=== PATIENT | female | born 1960 | race Caucasian/White ===

== ENCOUNTER 2016-10-31 18:17 | Observation (INO) | payer BC ==
[~2016-10-31] VITALS: Ht 167.6 cm; Wt 105.1 kg
[~2016-10-31 18:17] MED LIST: ACID REFLUX PO; ADVIN10/60 INH; ALBU1AER9 INH; B-CO-25 PO; BACL1TAB PO; CHOL1000 PO; CLOP1TAB15 PO; COEN1CAP17 PO; CYM60 PO; FEXO1TAB46 PO; FRS/40 PO; GABA-113 PO; LOSA1TAB PO; LUTE10TA PO; MULTTAB PO; ROSU40TA PO; SALI0.6517; TPRSR50 PO; TRAZ100T29 PO
--- NOTE | 2016-10-31 18:42 | EMERGENCY ROOM VISIT NOTE ---
History Report prepared by Lanette: Breana Underwood Under the Supervision of: Dr. Deo Gardiner M.D. First contact with patient: 18:26 Chief Complaint: NEURO SYMPTOMS Stated Complaint: NUMBNESS ON LEFT SIDE, HEADACHE History of Present Illness The patient is a 56 year old female who presents to the Emergency Room with complaints of persistent numbness on the left side starting 1500 today. She has chest pressure, tingling on her face, and left arm pain. The chest pressure is on the left side. She reports pain in her side for the past 3 months. She denies any vomiting, weakness, or fever. She denies any recent injury. She has had a stroke before and says that the symptoms are similar. Prior to having her stroke she had received Botox injections in her forehead for migraines. She had a second session of Botox 1 month ago. She has a history of chronic ischemic heart disease. She has had a heart attack in the past. She does not have any stents in place. She did not take any aspirin today. She is on Plavix. Source of History: patient Onset: 1500 today Position: other (left side) Quality: numbness Timing: other (persistent) Associated Symptoms: No fevers, No vomiting, No weakness Note: Pt reports chest pressure, face tingling, left arm pain. Review of Systems See HPI for pertinent positives & negatives. A total of 10 systems reviewed and were otherwise negative. Past Medical & Surgical Medical Problems: (1) Asthma, moderate persistent (2) Brice esophagus (3) CVA (cerebral vascular accident) (4) Fibromyalgia (5) Gastroparesis (6) GERD (gastroesophageal reflux disease) (7) HTN (hypertension) (8) IPMN (intraductal papillary mucinous neoplasm) (9) Migraine (10) ANGELICA (obstructive sleep apnea) Surgical Problems: (1) H/O tubal ligation (2) Hx of cervical discectomy (3) S/P cholecystectomy Family History Cancer Diabetes mellitus FH: gallbladder disease FH: heart disease Hypertension Kidney disease Kidney stones Social History Smoking Status: Former Smoker Alcohol Use: none Marital Status: Housing Status: lives with significant other Occupation Status: employed Current/Historical Medications Scheduled B-Complex W/ Folic Acid (Super B Complex Maxi), 1 TAB PO QAM Cholecalciferol (D 5000), 5,000 UNITS PO QAM Clopidogrel (Plavix), 75 MG PO QAM Coenzyme Q10 (Ubidecarenone) (Co Q 10), 100 MG PO QAM Duloxetine HCl (Duloxetine HCl), 60 MG PO QAM Duloxetine HCl (Cymbalta), 30 MG PO QAM Fluticasone Prop/Salmeterol (Advair Diskus 250/50 60 Dose), 1 PUFF INH BID Fluticasone Propionate (Nasal) (Flonase Allergy Relief), 1 SPRAY CRISTIANO BID Gabapentin (Neurontin), 300 MG PO TID Loratadine (Claritin), 10 MG PO QAM Losartan Potassium (Cozaar), 25 MG PO QPM Lutein (Lutein), 10 MG PO QAM Metoclopramide (Reglan), 10 MG PO BIDM Metoprolol Tartrate (Lopressor) (Lopressor), 50 MG PO BID Multiple Vitamins W/ Minerals (One Daily 50 Plus), 1 TAB PO QAM Pantoprazole (Protonix), 40 MG PO BID Rosuvastatin Calcium (Crestor), 40 MG PO QPM Triamcinolone Acet (Triamcinolone Acetonide), 1 APPLN TOP BID Scheduled PRN Albuterol Sulf (Albuterol Sulfate), 1 DOSE INH Q4H PRN for Shortness of Breath Albuterol Sulfate (Proventil Hfa), 2 PUFFS INH Q4H PRN for Shortness of Breath Baclofen (Lioresal), 10 MG PO TID PRN for Muscle Spasms Saline ([place] Nasal [place]), 1 SPRAY CRISTIANO Q2H PRN for DRYNESS Trazodone Hcl (Trazodone), 100 MG PO HS PRN for Insomnia Allergies Coded Allergies: Cephalexin (Verified Allergy, Intermediate, YEAST INFECTION, 10/31/16) Latex1 -Allergic Contact Dermititis (Verified Allergy, Intermediate, RASH- ITCHINESS, 10/31/16) Allergy with high doses Lisinopril (Verified Allergy, Intermediate, COUGH, 10/31/16) Amitriptyline (Verified Adverse Reaction, Mild, "Made me tired", 10/31/16) Prednisone (Verified Adverse Reaction, Unknown, ELEVATED BP-"FELT FUNNY", 10/31/16) Physical Exam Vital Signs Date Time Temp Pulse Resp B/P Pulse Ox O2 Delivery O2 Flow Rate FiO2 10/31/16 19:17 85 21 10/31/16 19:13 84 10/31/16 19:05 88 18 155/81 10/31/16 19:01 155/81 10/31/16 18:20 36.5 86 16 160/93 93 Physical Exam GENERAL: Patient is anxious appearing and in no acute distress. HEENT: No acute trauma, normocephalic atraumatic, mucous membranes moist, no nasal congestion, no scleral icterus. NECK: No stridor, no adenopathy, no meningismus, trachea is midline. LUNGS: No dyspnea. Clear to auscultation and equal bilaterally. No wheeze, no rhonchi. HEART: Regular rate and rhythm. No murmurs, rubs, gallops appreciated. ABDOMEN: Soft, nontender, bowel sounds positive, no masses appreciated, no peritonitis. BACK: No midline tenderness, no CVA tenderness EXTREMITIES: Normal motion all extremities, no cyanosis, no edema. NEUROLOGIC: Alert and oriented, no acute motor or sensory deficits, no focal weakness, cranial nerves grossly intact. SKIN: No rash, no jaundice, no diaphoresis. Medical Decision & Procedures ER Provider Diagnostic Interpretation: X ray results are stated below per my interpretation and the radiologist's interpretation. Radiology results and stated below per my review and radiologist interpretation: CHEST ONE VIEW PORTABLE CLINICAL HISTORY: Chest pain. COMPARISON STUDY: Chest radiograph December 29, 2014. FINDINGS: This exam is compromised by suboptimal penetration. There is an anterior cervical spine fusion. No pneumothorax or pleural effusion is present. Apparent hazy left basilar opacity is probably artifactual. Cardiomediastinal silhouette is normal. IMPRESSION: 1. No acute findings. 2. Study compromised by suboptimal penetration. Hazy left basilar opacity is likely artifactual. Electronically signed by: Chris Elliott M.D. 10/31/2016 7:05 PM Dictated Date/Time: 10/31/2016 7:[address] OF THE HEAD WITHOUT CONTRAST CLINICAL HISTORY: Left face/arm paresthesias COMPARISON STUDY: Head CT February 23, 2014 and MRI of the brain September 03, 2015. CT DOSE: 601.98 mGy.cm TECHNIQUE: Helical axial images of the head were obtained without IV contrast. Automated exposure control was utilized for the study. FINDINGS: No acute intracranial hemorrhage, midline shift or mass effect is present. Ventricular system is normal. Basilar cisterns are patent. There are no extra-axial collections. Shane-white differentiation is maintained. There are no findings to suggest acute dural sinus thrombosis or acute territorial infarct. There is no calvarial abnormality. Visualized portions of the sinuses and mastoid air cells are clear. IMPRESSION: No acute intracranial findings. Electronically signed by: Chris Elliott M.D. 10/31/2016 7:40 PM Dictated Date/Time: 10/31/2016 7:38 PM Laboratory Results Test 10/31/16 19:00 Immature Granulocyte % (Auto) 0.1 % White Blood Count 7.59 K/uL (4.8-10.8) Red Blood Count 4.83 M/uL (4.2-5.4) Hemoglobin 14.7 g/dL (12.0-16.0) Hematocrit 44.0 % (37-47) Mean Corpuscular Volume 91.1 fL (80-100) Mean Corpuscular Hemoglobin 30.4 pg (25-34) Mean Corpuscular Hemoglobin Concent 33.4 g/dl (32-36) Platelet Count 184 K/uL (130-400) Mean Platelet Volume 9.6 fL (7.4-10.4) Neutrophils (%) (Auto) 56.3 % Lymphocytes (%) (Auto) 31.4 % Monocytes (%) (Auto) 9.5 % Eosinophils (%) (Auto) 1.8 % Basophils (%) (Auto) 0.9 % Neutrophils # (Auto) 4.27 K/uL (1.4-6.5) Lymphocytes # (Auto) 2.38 K/uL (1.2-3.4) Monocytes # (Auto) 0.72 K/uL (0.11-0.59) Eosinophils # (Auto) 0.14 K/uL (0-0.5) Basophils # (Auto) 0.07 K/uL (0-0.2) Immature Granulocyte # (Auto) 0.01 K/uL (0.00-0.02) Prothrombin Time 10.1 SECONDS (9.0-12.0) Prothromb Time International Ratio 0.9 (0.9-1.1) Activated Partial Thromboplast Time 26.4 SECONDS (21.0-31.0) Partial Thromboplastin Ratio 1.0 Estimated Average Glucose 123 mg/dl Hemoglobin A1c 5.9 % (4.5-5.6) Phosphorus Level 3.0 mg/dl (2.5-4.9) Magnesium Level 2.4 mg/dl (1.8-2.4) Total Creatine Kinase 116 U/L (26-192) Hepatitis C Antibody Screen NEG (NEG) Laboratory results as reviewed by me. Medications Administered Medications (Trade) Dose Ordered Sig/Ankit Route Start Time Stop Time Status Last Admin Dose Admin Nitroglycerin (Nitrostat Tab) 0.4 mg Q5M PRN SL 10/31/16 18:45 10/31/16 22:34 DC 10/31/16 18:55 0.4 MG Aspirin (Aspirin Chew) 324 mg NOW STAT PO 10/31/16 20:03 10/31/16 20:04 DC 10/31/16 21:56 324 MG ECG Indication: chest pain Rate (beats per minute): 81 Rhythm: normal sinus Findings: no acute ischemic change, no ectopy ED Course 1826: The patient was evaluated in room B10. A complete history and physical exam was performed. 1844: Nitroglycerin 0.4 mg SL. 1954: I reevaluated the patient. She reports that the nitro resolved the chest pain and tingling. 2001: I discussed the patient's [facility] She will evaluate the patient for further management. 2002: Aspirin 324 mg PO. 2006: Upon reevaluation, the patient is resting comfortably. Discussed results and treatment plan with the patient. She verbalized understanding and agreement with the treatment plan. The patient will be evaluated for further management. Medical Decision Differential: Sepsis, Infectious (UTI/Pneumonia/Meningitis/etc), Metabolic/ Electrolyte Abnormality, Cardiac, Hepatic, Endocrine, Toxicologic, Neurologic, amongst other pathologies entertained. 56 yr old female arrives with complaint of both substernal chest pressure and left face/arm paresthesias. Given nitro with relief of symptoms. CT head negative. CXR, EKG, Trop OK. SHe is high risk stroke/TX given her history. Will need cardiac/stroke work-up. She was not TPA candidate given longevity symptoms, minimal symptoms, and not clear cause of symptoms. Stable throughout ED stay. Consults Time Called: 1955 Consulting Physician: [facility] Returned Call: 2001 Discussed the patient's case. The patient will be evaluated for further treatment and disposition. Impression Primary Impression: Substernal chest pain Additional Impression: Paresthesia of left arm Scribe Attestation The scribe's documentation has been prepared under my direction and personally reviewed by me in its entirety. I confirm that the note above accurately reflects all work, treatment, procedures, and medical decision making performed by me. Time Last Known Well possibly 1500 Stroke t-PA Criteria Reviewed Does NOT meet criteria for t-PA Reason t-PA Not Given Treatment not indicated Departure Information Dispostion Being Evaluated By Hospitalist Referrals Rocky So M.D. (PCP) Patient Instructions My [facility] Problem Qualifiers
[2016-10-31] MEDS ORDERED: NITROGLYCERIN 0.4 MG SL PER TAB CHARGE SL PRN ×2 (18:45→20:45)
--- NOTE | 2016-10-31 19:08 | DIAGNOSTIC IMAGING REPORT ---
CHEST ONE VIEW PORTABLE CLINICAL HISTORY: Chest pain. COMPARISON STUDY: Chest radiograph December 29, 2014. FINDINGS: This exam is compromised by suboptimal penetration. There is an anterior cervical spine fusion. No pneumothorax or pleural effusion is present. Apparent hazy left basilar opacity is probably artifactual. Cardiomediastinal silhouette is normal. IMPRESSION: 1. No acute findings. 2. Study compromised by suboptimal penetration. Hazy left basilar opacity is likely artifactual. Electronically signed by: Chris Elliott M.D. 10/31/2016 7:05 PM Dictated Date/Time: 10/31/2016 7:04 PM
[2016-10-31 19:13] LABS: BASO % 0.9 %; BASO ABS # 0.07 K/uL (0-0.2); COMPLETE YES; EOS % 1.8 %; IG% 0.1 %; LYMPH % 31.4 %; LYMPH ABS # 2.38 K/uL (1.2-3.4); MEAN CELL VOLUME 91.1 fL (80-100); MEAN CORPUSCULAR HEMOGLOBIN 30.4 pg (25-34); MEAN CORPUSCULAR HGB CONC 33.4 g/dl (32-36); MEAN PLATELET VOLUME 9.6 fL (7.4-10.4); MONO % 9.5 %; NEUT % 56.3 %; PLATELET COUNT 184 K/uL (130-400); RED BLOOD COUNT 4.83 M/uL (4.2-5.4); WHITE BLOOD COUNT 7.59 K/uL (4.8-10.8)
[2016-10-31 19:25] LABS: INR 0.9 (0.9-1.1); PROTHROMBIN TIME (PATIENT) 10.1 SECONDS (9.0-12.0)
[2016-10-31 19:29] LABS: BLOOD UREA NITROGEN 11 mg/dl (7-18); BUN/CREATININE RATIO 10.2 (10-20); CALCIUM 8.8 mg/dl (8.5-10.1); CARBON DIOXIDE 28 mmol/L (21-32); CHLORIDE 108 mmol/L (98-107); GLUCOSE 111 mg/dl (70-99); MAGNESIUM 2.4 mg/dl (1.8-2.4); POTASSIUM 3.8 mmol/L (3.5-5.1); SODIUM 142 mmol/L (136-145)
[2016-10-31] MEDS ORDERED: METO-157 PO (19:31)
[2016-10-31] MEDS ORDERED: ALBUAER INH (19:31)
[2016-10-31] MEDS ORDERED: ADVIN25/60 INH (19:31)
[2016-10-31] MEDS ORDERED: CHOLCAP10 PO (19:31)
[2016-10-31] MEDS ORDERED: FLUT0.15 NAE (19:31)
[2016-10-31] MEDS ORDERED: TRMCR515 TOP (19:31)
[2016-10-31] MEDS ORDERED: SALI0.6510 NAE (19:31)
[2016-10-31] MEDS ORDERED: SUCR1TAB29 PO (19:31)
[2016-10-31] MEDS ORDERED: CLR10 PO (19:31)
[2016-10-31] MEDS ORDERED: ALBINS INH (19:31)
[2016-10-31] MEDS ORDERED: METO50TA16 PO (19:31)
[2016-10-31] MEDS ORDERED: PANT1TAB48 PO (19:31)
[2016-10-31] MEDS ORDERED: MULT50TA3 PO (19:31)
[2016-10-31] MEDS ORDERED: CYM/30 PO (19:37)
--- NOTE | 2016-10-31 19:42 | DIAGNOSTIC IMAGING REPORT ---
CT OF THE HEAD WITHOUT CONTRAST CLINICAL HISTORY: Left face/arm paresthesias COMPARISON STUDY: Head CT February 23, 2014 and MRI of the brain September 03, 2015. CT DOSE: 601.98 mGy.cm TECHNIQUE: Helical axial images of the head were obtained without IV contrast. Automated exposure control was utilized for the study. FINDINGS: No acute intracranial hemorrhage, midline shift or mass effect is present. Ventricular system is normal. Basilar cisterns are patent. There are no extra-axial collections. Shane-white differentiation is maintained. There are no findings to suggest acute dural sinus thrombosis or acute territorial infarct. There is no calvarial abnormality. Visualized portions of the sinuses and mastoid air cells are clear. IMPRESSION: No acute intracranial findings. Electronically signed by: Chris Elliott M.D. 10/31/2016 7:40 PM Dictated Date/Time: 10/31/2016 7:38 PM
[2016-10-31] MEDS ORDERED: ASPIRIN 324 MG CHEW PO STA (20:03)
[2016-10-31] MEDS ORDERED: ACETAMINOPHEN 325 MG TAB PO PRN (20:45)
[2016-10-31] MEDS ORDERED: ONDANSETRON INJ 2 MG/ML 2 ML VIAL IV PRN (20:45)
[2016-10-31] MEDS ORDERED: PHARMACIST DISCHARGE MED REC CONSULT PRN (21:00)
--- NOTE | 2016-10-31 21:07 | Progress Note ---
Progress Note Date of Service Oct 31, 2016. Progress Note Patient was seen and evaluated with DRUG SAFETY DATA MANAGEMENT SPECIALIST, Umm Hull. Patient came in with chest pain with left arm heaviness while working at her desk. No nausea, vomiting, sweating, palpitations, diaphoresis associated with it On exam AAOX3, obese, Lungs- clear, Heart- s1, s2 normal, Abd- soft, non tender, non distended, Ext no edema A/P: Chest pain, atypical -Rule out ACS with cardiac risk factors -Has had 2 cath per patient few years ago- mild CAD per her not requiring any intervention -EKG- NSR, no acute changes, Trop x 1 negative -Troponin trend, Stress echo in AM Agree with A/P of Umm BANDA.
[2016-10-31 21:10] VITALS: O2SAT 93; Ht 167.6 cm; Wt 105.1 kg
[2016-10-31] MEDS ORDERED: IV FLUIDS COMPLETED PRN (21:15)
[2016-10-31 22:00] VITALS: PULSE 84; O2SAT 96
[2016-10-31] MEDS ORDERED: ASPIRIN 324 MG CHEW ONE (22:04)
[2016-10-31 22:11] VITALS: BP 166/79; PULSE 74; TEMP 36.4; O2SAT 93
--- NOTE | 2016-10-31 22:12 | History and Physical ---
History & Physical Date & Time of Service: Oct 31, 2016 ~ 20:30 Chief Complaint: Chest Pain Primary Care Physician: Rocky So M.D. History of Present Illness 56 year old female who presents to the ER with chest pain. Patient reports she was sitting at her desk when she developed mid sternal chest pain with associated left arm heaviness and numbness. Patient describes the pain as a pressure. She reports associated shortness of breath, nausea, diaphoresis, and lightheadedness. She also had numbness on the left side of her body which she reports is residual from her prior stroke and only appears when she is tried. Patient reports resolution of her symptoms with nitroglycerin. She denies abdominal pain, vomiting, or diarrhea. No fever or chills. She denies any urinary symptoms. In the ER, initial troponin is negative and EKG does not show any acute ST changes. Patient given a full dose ASA. Past Medical/Surgical History Medical Problems: (1) Asthma, moderate persistent Status: Chronic (2) Brice esophagus Status: Chronic (3) CVA (cerebral vascular accident) Status: Chronic (4) Fibromyalgia Status: Chronic (5) Gastroparesis Status: Chronic (6) GERD (gastroesophageal reflux disease) Status: Chronic (7) HTN (hypertension) Status: Chronic (8) IPMN (intraductal papillary mucinous neoplasm) Status: Chronic (9) Migraine Status: Chronic (10) ANGELICA (obstructive sleep apnea) Status: Chronic Surgical Problems: (1) H/O tubal ligation Status: Chronic (2) Hx of cervical discectomy Status: Chronic (3) S/P cholecystectomy Status: Chronic Social History Smoking Status: Former Smoker Alcohol Use: none Immunizations History of Tetanus Vaccine?: Yes Tetanus Immunization Date: Oct 30, 2013 History of Pneumococcal: Yes Pneumococcal Date: November 11, 2010 Allergies Coded Allergies: Cephalexin (Verified Allergy, Intermediate, YEAST INFECTION, 10/31/16) Latex1 -Allergic Contact Dermititis (Verified Allergy, Intermediate, RASH- ITCHINESS, 10/31/16) Allergy with high doses Lisinopril (Verified Allergy, Intermediate, COUGH, 10/31/16) Amitriptyline (Verified Adverse Reaction, Mild, "Made me tired", 10/31/16) Prednisone (Verified Adverse Reaction, Unknown, ELEVATED BP-"FELT FUNNY", 10/31/16) Home Medications Scheduled B-Complex W/ Folic Acid (Super B Complex Maxi), 1 TAB PO QAM Cholecalciferol (D 5000), 5,000 UNITS PO QAM Clopidogrel (Plavix), 75 MG PO QAM Coenzyme Q10 (Ubidecarenone) (Co Q 10), 100 MG PO QAM Duloxetine HCl (Duloxetine HCl), 60 MG PO QAM Duloxetine HCl (Cymbalta), 30 MG PO QAM Fluticasone Prop/Salmeterol (Advair Diskus 250/50 60 Dose), 1 PUFF INH BID Fluticasone Propionate (Nasal) (Flonase Allergy Relief), 1 SPRAY CRISTIANO BID Gabapentin (Neurontin), 300 MG PO TID Loratadine (Claritin), 10 MG PO QAM Losartan Potassium (Cozaar), 25 MG PO QPM Lutein (Lutein), 10 MG PO QAM Metoclopramide (Reglan), 10 MG PO BIDM Metoprolol Tartrate (Lopressor) (Lopressor), 50 MG PO BID Multiple Vitamins W/ Minerals (One Daily 50 Plus), 1 TAB PO QAM Pantoprazole (Protonix), 40 MG PO BID Rosuvastatin Calcium (Crestor), 40 MG PO QPM Triamcinolone Acet (Triamcinolone Acetonide), 1 APPLN TOP BID Scheduled PRN Albuterol Sulf (Albuterol Sulfate), 1 DOSE INH Q4H PRN for Shortness of Breath Albuterol Sulfate (Proventil Hfa), 2 PUFFS INH Q4H PRN for Shortness of Breath Baclofen (Lioresal), 10 MG PO TID PRN for Muscle Spasms Saline ([place] Nasal [place]), 1 SPRAY CRISTIANO Q2H PRN for DRYNESS Trazodone Hcl (Trazodone), 100 MG PO HS PRN for Insomnia Review of Systems 10 point review of systems was completed with the pertinent positives and negatives noted per the HPI Physical Exam Vital Signs Date Time Temp Pulse Resp B/P Pulse Ox O2 Delivery O2 Flow Rate FiO2 10/31/16 21:56 36.5 85 21 145/88 93 10/31/16 21:52 145/88 10/31/16 21:10 93 Room Air 10/31/16 19:17 85 21 10/31/16 19:13 84 10/31/16 19:05 88 18 155/81 10/31/16 19:01 155/81 10/31/16 18:20 36.5 86 16 160/93 93 General Appearance: no apparent distress Head: normocephalic Eyes: normal inspection, PERRL ENT: hearing grossly normal Neck: supple, no JVD Cardiovascular: regular rate, rhythm, no edema, normal peripheral pulses Abdomen/GI: normal bowel sounds, non tender, soft Extremities/Musculoskelatal: normal inspection, no calf tenderness Neurologic/Psych: alert, normal mood/affect, oriented x 3, + pertinent finding (mild sensory deficit on the left side; otherwise no other motor or sensory deficits ) Skin: normal color, warm/dry Diagnostics Laboratory Results Results Past 24 Hours Test 10/31/16 19:00 Range/Units White Blood Count 7.59 4.8-10.8 K/uL Red Blood Count 4.83 4.2-5.4 M/uL Hemoglobin 14.7 12.0-16.0 g/dL Hematocrit 44.0 37-47 % Mean Corpuscular Volume 91.1 80-100 fL Mean Corpuscular Hemoglobin 30.4 25-34 pg Mean Corpuscular Hemoglobin Concent 33.4 32-36 g/dl Platelet Count 184 130-400 K/uL Mean Platelet Volume 9.6 7.4-10.4 fL Neutrophils (%) (Auto) 56.3 % Lymphocytes (%) (Auto) 31.4 % Monocytes (%) (Auto) 9.5 % Eosinophils (%) (Auto) 1.8 % Basophils (%) (Auto) 0.9 % Neutrophils # (Auto) 4.27 1.4-6.5 K/uL Lymphocytes # (Auto) 2.38 1.2-3.4 K/uL Monocytes # (Auto) 0.72 0.11-0.59 K/uL Eosinophils # (Auto) 0.14 0-0.5 K/uL Basophils # (Auto) 0.07 0-0.2 K/uL RDW Standard Deviation 46.2 36.4-46.3 fL RDW Coefficient of Variation 13.8 11.5-14.5 % Immature Granulocyte % (Auto) 0.1 % Immature Granulocyte # (Auto) 0.01 0.00-0.02 K/uL Prothrombin Time 10.1 9.0-12.0 SECONDS Prothromb Time International Ratio 0.9 0.9-1.1 Activated Partial Thromboplast Time 26.4 21.0-31.0 SECONDS Partial Thromboplastin Ratio 1.0 Sodium Level 142 136-145 mmol/L Potassium Level 3.8 3.5-5.1 mmol/L Chloride Level 108 98-107 mmol/L Carbon Dioxide Level 28 21-32 mmol/L Anion Gap 6.0 3-11 mmol/L Blood Urea Nitrogen 11 7-18 mg/dl Creatinine 1.10 0.60-1.20 mg/dl Est Creatinine Clear Calc Drug Dose 71.5 ml/min Estimated GFR () 65.5 Estimated GFR (Non- 56.5 BUN/Creatinine Ratio 10.2 10-20 Random Glucose 111 70-99 mg/dl Calcium Level 8.8 8.5-10.1 mg/dl Phosphorus Level 3.0 2.5-4.9 mg/dl Magnesium Level 2.4 1.8-2.4 mg/dl Total Creatine Kinase 116 26-192 U/L Creatine Kinase MB 1.2 0.5-3.6 ng/ml Creatine Kinase MB Ratio 1.0 0-3.0 Troponin I < 0.015 0-0.045 ng/ml Diagnostic Radiology HEAD CT IMPRESSION: No acute intracranial findings. CXR IMPRESSION: 1. No acute findings. 2. Study compromised by suboptimal penetration. Hazy left basilar opacity is likely artifactual. Impression Assessment and Plan CHEST PAIN - admit to tele - patient presenting with chest pressure with associated left arm heaviness and numbness; had resolution of symptoms with nitro - risk factors: HTN, HLD - hx cardiac cath ~ 2012 - no significant blockages - initial troponin negative; EKG without acute ST changes - continue to cycle cardiac enzymes, if negative, will get stress in AM - on Plavix for CVA history, will add ASA 81mg - continue beta bharath and statin HX CVA - residual effects at baseline - continue Plavix and statin; adding ASA as above HTN - BP controlled, continue metoprolol and losartan ASTHMA - no signs of exacerbation, continue home inhalers ANGELICA - CPAP as per home settings DVT PROPHYLAXIS - SCDs DISPO - The patient will be placed as observation status for now until further work up is complete. Advanced Directives Existing Living Will: No Existing Power of Flour Blender Helper: No VTE Prophylaxis VTE Risk Assessment Done? Y/N: Yes Risk Level: Moderate
[2016-10-31] MEDS: PANTOprazole SOD 40 MG TAB PO SCH (23:32)
[2016-10-31] MEDS: METOPROLOL TARTRATE 50 MG TAB PO SCH (23:32)
[2016-10-31] MEDS: LOSARTAN POTASSIUM 25 MG TAB PO SCH (23:33)
[2016-11-01] VITALS (9 sets, daily range): BP systolic 129–152; BP diastolic 76–84; PULSE 71–108; TEMP 36.3–36.8; O2SAT 91–94
[2016-11-01 06:50] LABS: ESTIMATED AVERAGE GLUCOSE 123 mg/dl; HA1C FLAG Normal (Normal)
[2016-11-01 07:38] LABS: HEMATOCRIT 41.2 % (37-47); MEAN CELL VOLUME 91.6 fL (80-100); MEAN CORPUSCULAR HEMOGLOBIN 30.2 pg (25-34); MEAN PLATELET VOLUME 9.5 fL (7.4-10.4); PLATELET COUNT 165 K/uL (130-400)
[2016-11-01] MEDS: CEROVITE ADV FORMULA TAB PO SCH (07:40)
[2016-11-01] MEDS: METOPROLOL TARTRATE 50 MG TAB PO SCH ×2 (07:40→20:57)
[2016-11-01] MEDS: FLUTICASONE/SALMETEROL 250/50 (ADVAIR) 14 PUFF/1 INHALER INH SCH ×2 (07:40→20:58)
[2016-11-01] MEDS: METOCLOPRAMIDE HCL 10 MG TAB PO SCH ×2 (07:41→17:00)
[2016-11-01] MEDS: ASPIRIN 81 MG ECTAB PO SCH (07:41)
[2016-11-01] MEDS: GABAPENTIN 300 MG CAP PO SCH ×3 (07:41→20:57)
[2016-11-01] MEDS: CHOLECALCIFEROL 1000 INTER.UNIT TAB PO SCH (07:41)
[2016-11-01] MEDS: LORATADINE 10 MG TAB PO SCH (07:42)
[2016-11-01] MEDS: DULOXETINE HCL 60 MG CAP PO SCH (07:42)
[2016-11-01] MEDS: DULOXETINE (CYMBALTA) 30 MG CAP PO SCH (07:42)
[2016-11-01] MEDS: VITAMIN B COMPLEX TAB PO SCH (07:42)
[2016-11-01] MEDS: CLOPIDOGREL BISULFATE 75 MG TAB PO SCH (07:42)
[2016-11-01] MEDS: PANTOprazole SOD 40 MG TAB PO SCH ×2 (07:44→20:58)
[2016-11-01 08:42] LABS: BLOOD UREA NITROGEN 12 mg/dl (7-18); BUN/CREATININE RATIO 12.1 (10-20); CALCIUM 8.6 mg/dl (8.5-10.1); CARBON DIOXIDE 29 mmol/L (21-32); CHLORIDE 107 mmol/L (98-107); CHOLESTEROL 137 mg/dl (0-200); CHOLESTEROL/HDL RATIO 2.6; CREATININE 0.97 mg/dl (0.60-1.20); GLUCOSE 95 mg/dl (70-99); HDL CHOLESTEROL 53 mg/dl; LDL CHOLESTEROL CALCULATED 61 mg/dl; SODIUM 144 mmol/L (136-145); TRIGLYCERIDES 115 mg/dl (0-150); VERY LOW DENSITY LIPOPROT CALC 23 mg/dl
[2016-11-01] MEDS ORDERED: NON-FORMULARY MEDICATION (Lutein 10 MG) PO SCH (09:00)
[2016-11-01] MEDS ORDERED: NON-FORMULARY MEDICATION (Coenzyme Q10 (Ubidecarenone) (Co Q 10) 100 MG) PO SCH (09:00)
[2016-11-01] MEDS ORDERED: PERFLUTREN LIPID MICROSPHERE (DEFINITY) IV ONE (10:36)
[2016-11-01 12:10] LABS: POTASSIUM 4.5 mmol/L (3.5-5.1)
--- NOTE | 2016-11-01 14:03 | DOBUTAMINE ECHO ---
*NOTICE TO RECEIVING [employer] This information is strictly Confidential and protected under [place] law. [place] law prohibits you from making any further disclosure of this information unless further disclosure is expressly permitted by the written consent of the person to whom it pertains or is authorized by law. A general authorization for the release of medical or other information is not sufficient for this purpose. Hospital accepts no responsibility if the information is made available to any other person, INCLUDING THE PATIENT. Interpretation Summary * Name: LUCIO CROWELL Study Date: 11/01/2016 09:02 AM BP: 131/68 mmHg * Patient Location: .2T\S\S241\S\1 HR: 82 * : 1960 (M/d/yyyy) Gender: Female Height: 65 in * Age: 56 yrs Ethnicity: [place] Weight: 235 lb * Ordering Physician: Umm Hull * Performed By: Mallory Pacheco RDCS * * Reason For Study: Chest pain * BSA: 2.1 m2 * STRESS STUDY: Normal pharmacologic stress echocardiogram. No echocardiographic or ECG evidence of myocardial ischemia having achieved heart rate adequate for diagnostic purposes. * -- Conclusions -- * STRESS STUDY: Normal pharmacologic stress echocardiogram. No echocardiographic or ECG evidence of myocardial ischemia having achieved heart rate adequate for diagnostic purposes. Procedure Details * ECHOEX, CPT #23156 * ECHO DOPPLER, CPT #[id number] * ECHO COLOR FLOW, CPT #[id number] * A contrast injection of Definity was performed to improve assessment of LV function. * Contrast was injected into an intravenous site in the right arm. * One vial of Definity ultrasound contrast was diluted in normal saline to a total volume of 10 ml. A total of '4' ml of solution was administered during imaging. * Lot # [id number] of Definity utilized for procedure. * Expiration date AUG 26. * The attending nurse who injected the contrast agent was Alma Estrada RN. * DOBUTAMINE ECHO, CPT#65522 Left Ventricle * The left ventricle is normal in size. * There is normal left ventricular wall thickness. * Left ventricular systolic function is normal. * Ejection Fraction = 60-65%. * The left ventricular wall motion is normal at rest. * The left ventricular ejection fraction increases normally with stress. The left ventricular end-systolic cavity size reduces post-stress (normal response). The left ventricular wall motion with stress is normal. Right Ventricle * The right ventricle is normal in size and function. Atria * The left atrial size is normal. * Right atrial size is normal. * No ASD detected; PFO is not assessed. Mitral Valve * The mitral valve is normal. * There is no mitral valve stenosis. * Significant mitral regurgitation is absent. Tricuspid Valve * The tricuspid valve is normal. * There is no tricuspid stenosis. * Significant tricuspid regurgitation is absent. Aortic Valve * The aortic valve is trileaflet. * Aortic stenosis is absent. * There is no significant aortic regurgitation. Pulmonic Valve * The pulmonary valve is not well seen, but the Doppler examination is normal without significant regurgitation or stenosis. Great Vessels * The aortic root and proximal ascending aorta are normal sized. Pericardium * There is no pericardial effusion. Stress Parameters * Normal baseline electrocardiogram. * Stress ECG: No ST changes. No arrhythmias. * The stress ECG response was normal * The stress portion of this study was personally supervised by the undersigned interpreting physician. * Rest heart rate was '82' BPM. * Rest blood pressure was '131/68' * Maximum heart rate achieved was 139 bpm. * Maximum heart rate was 84 % of maximum age-predicted heart rate. * Maximum blood pressure was '191/74' * Total exercise time was '7:32' * Maximum exercise MET level achieved was '9.30' METS * Maximum treadmill speed was '3.40' miles per hour. * Maximum treadmill elevation was '14.00'% grade. * Exercise was terminated due to 'patient request' MMode 2D Measurements and Calculations IVSd 1.2 cm LVIDd 3.8 cm LVIDs 2.5 cm LVPWd 0.97 cm IVS/LVPW 1.2 FS 34.5 % EDV(Teich) 63.2 ml ESV(Teich) 22.5 ml EF(Teich) 64.4 % EDV(cubed) 56.3 ml ESV(cubed) 15.8 ml EF(cubed) 71.9 % LV mass(C)d 130.8 grams LV mass(C)dI 61.8 grams/m\S\2 SV(Teich) 40.7 ml SI(Teich) 19.2 ml/m\S\2 SV(cubed) 40.5 ml SI(cubed) 19.1 ml/m\S\2 Ao root diam 3.2 cm Ao root area 8.3 cm\S\2 ACS 2.0 cm LA dimension 2.7 cm asc Aorta Diam 3.0 cm LA/Ao 0.84 LVOT diam 2.0 cm LVOT area 3.2 cm\S\2 Doppler Measurements and Calculations MV E max donald 67.5 cm/sec MV A max donald 55.3 cm/sec MV E/A 1.2 MV dec time 0.22 sec Ao V2 max 140.4 cm/sec Ao max PG 7.9 mmHg Ao max PG (full) 1.3 mmHg GULSHAN(V,A) 3.0 cm\S\2 GULSHAN(V,D) 3.0 cm\S\2 AI max donald 401.2 cm/sec AI max PG 64.4 mmHg AI dec slope 204.2 cm/sec\S\2 AI P1/2t 575.5 msec LV V1 max PG 6.6 mmHg LV V1 max 128.5 cm/sec PA V2 max 89.2 cm/sec PA max PG 3.2 mmHg PA acc slope 625.8 cm/sec\S\2 PA acc time 0.12 sec PA pr(Accel) 23.5 mmHg
--- NOTE | 2016-11-01 17:53 | Progress Note ---
Internal Med Progress Note Date of Service: Nov 01, 2016. Provider Documentation: SUBJECTIVE: currently no chest pain or sob still has numbness in her left face and arm says it happened before when she had Botox injections request to see her neurologists OBJECTIVE: Vital Signs-as noted below Exam: General-Alert and oriented ENT-normal hearing Neck-no neck masses Lungs-cta b/l no wheezing or crackles Heart-s1 and s2 heard regular rate and rhythm no murmurs Abdomen-soft bowel sounds present no tenderness no distension Extremities-no edema no erythema Neuro-Alert and oriented moves extremities Lab data as noted below. ASSESSMENT & PLAN: CHEST PAIN serial ce and ekg unremarkable stress test negative currently asymptomatic Left face and arm numbness says had before when had botox inj ct head negative. requests to be seen by neurology. 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 On Plavix and statin; added ASA HTN continue metoprolol and losartan will monitor ASTHMA stable on home inhalers ANGELICA CPAP as per home settings DVT PROPHYLAXIS SCDs DISPOSITION to be determined Vital Signs: Date Time Temp Pulse Resp B/P Pulse Ox O2 Delivery O2 Flow Rate FiO2 11/01/16 15:44 36.3 77 20 136/79 93 Room Air 11/01/16 12:00 Room Air 11/01/16 11:16 36.7 108 18 152/84 92 Room Air 11/01/16 08:09 36.8 71 18 149/81 94 Room Air 11/01/16 08:00 Room Air 11/01/16 04:00 Room Air 11/01/16 03:56 36.7 73 19 129/78 93 CPAP 11/01/16 00:06 36.4 86 19 149/80 91 CPAP 11/01/16 00:00 Room Air 10/31/16 22:11 36.4 74 17 166/79 93 Room Air 10/31/16 22:00 84 96 10/31/16 21:56 36.5 85 21 145/88 93 10/31/16 21:52 145/88 10/31/16 21:10 93 Room Air 10/31/16 19:17 85 21 10/31/16 19:13 84 10/31/16 19:05 88 18 155/81 10/31/16 19:01 155/81 10/31/16 18:20 36.5 86 16 160/93 93 Lab Results: Results Past 24 Hours Test 10/31/16 19:00 11/01/16 01:00 11/01/16 07:00 11/01/16 07:19 Range/Units White Blood Count 7.59 6.70 4.8-10.8 K/uL Red Blood Count 4.83 4.50 4.2-5.4 M/uL Hemoglobin 14.7 13.6 12.0-16.0 g/dL Hematocrit 44.0 41.2 37-47 % Mean Corpuscular Volume 91.1 91.6 80-100 fL Mean Corpuscular Hemoglobin 30.4 30.2 25-34 pg Mean Corpuscular Hemoglobin Concent 33.4 33.0 32-36 g/dl Platelet Count 184 165 130-400 K/uL Mean Platelet Volume 9.6 9.5 7.4-10.4 fL Neutrophils (%) (Auto) 56.3 % Lymphocytes (%) (Auto) 31.4 % Monocytes (%) (Auto) 9.5 % Eosinophils (%) (Auto) 1.8 % Basophils (%) (Auto) 0.9 % Neutrophils # (Auto) 4.27 1.4-6.5 K/uL Lymphocytes # (Auto) 2.38 1.2-3.4 K/uL Monocytes # (Auto) 0.72 0.11-0.59 K/uL Eosinophils # (Auto) 0.14 0-0.5 K/uL Basophils # (Auto) 0.07 0-0.2 K/uL RDW Standard Deviation 46.2 45.5 36.4-46.3 fL RDW Coefficient of Variation 13.8 13.6 11.5-14.5 % Immature Granulocyte % (Auto) 0.1 % Immature Granulocyte # (Auto) 0.01 0.00-0.02 K/uL Prothrombin Time 10.1 9.0-12.0 SECONDS Prothromb Time International Ratio 0.9 0.9-1.1 Activated Partial Thromboplast Time 26.4 21.0-31.0 SECONDS Partial Thromboplastin Ratio 1.0 Sodium Level 142 144 136-145 mmol/L Potassium Level 3.8 3.5-5.1 mmol/L Chloride Level 108 107 98-107 mmol/L Carbon Dioxide Level 28 29 21-32 mmol/L Anion Gap 6.0 8.0 3-11 mmol/L Blood Urea Nitrogen 11 12 7-18 mg/dl Creatinine 1.10 0.97 0.60-1.20 mg/dl Est Creatinine Clear Calc Drug Dose 71.5 80.6 ml/min Estimated GFR () 65.5 76.2 Estimated GFR (Non- 56.5 65.8 BUN/Creatinine Ratio 10.2 12.1 10-20 Random Glucose 111 95 70-99 mg/dl Estimated Average Glucose 123 mg/dl Hemoglobin A1c 5.9 4.5-5.6 % Calcium Level 8.8 8.6 8.5-10.1 mg/dl Phosphorus Level 3.0 2.5-4.9 mg/dl Magnesium Level 2.4 1.8-2.4 mg/dl Total Creatine Kinase 116 26-192 U/L Creatine Kinase MB 1.2 1.1 0.6 0.5-3.6 ng/ml Creatine Kinase MB Ratio 1.0 0-3.0 Troponin I < 0.015 < 0.015 < 0.015 0-0.045 ng/ml Hepatitis C Antibody Screen NEG NEG Triglycerides Level 115 0-150 mg/dl Cholesterol Level 137 0-200 mg/dl HDL Cholesterol 53 mg/dl LDL Cholesterol, Calculated 61 mg/dl VLDL Cholesterol, Calculated 23 mg/dl Cholesterol/HDL Ratio 2.6 Chemistry Specimen Hemolysis Test 11/01/16 09:03 11/01/16 11:05 Range/Units Potassium Level 4.5 3.5-5.1 mmol/L Chemistry Specimen Hemolysis
[2016-11-01] MEDS: LOSARTAN POTASSIUM 25 MG TAB PO SCH (20:58)
[2016-11-01] MEDS ORDERED: ROSUVASTATIN CALCIUM 20 MG TAB PO SCH (21:00)
[2016-11-02 03:56] VITALS: BP 126/84; PULSE 76; TEMP 36.5; O2SAT 94
[2016-11-02 07:34] VITALS: BP 105/75; PULSE 78; TEMP 36.4; O2SAT 93
[2016-11-02] MEDS: VITAMIN B COMPLEX TAB PO SCH (07:54)
[2016-11-02] MEDS: FLUTICASONE/SALMETEROL 250/50 (ADVAIR) 14 PUFF/1 INHALER INH SCH (07:54)
[2016-11-02] MEDS: CHOLECALCIFEROL 1000 INTER.UNIT TAB PO SCH (07:54)
[2016-11-02] MEDS: PANTOprazole SOD 40 MG TAB PO SCH (07:54)
[2016-11-02] MEDS: GABAPENTIN 300 MG CAP PO SCH ×2 (07:54→14:06)
[2016-11-02] MEDS: DULOXETINE (CYMBALTA) 30 MG CAP PO SCH (07:54)
[2016-11-02] MEDS: DULOXETINE HCL 60 MG CAP PO SCH (07:54)
[2016-11-02] MEDS: CLOPIDOGREL BISULFATE 75 MG TAB PO SCH (07:55)
[2016-11-02] MEDS: ASPIRIN 81 MG ECTAB PO SCH (07:55)
[2016-11-02] MEDS: LORATADINE 10 MG TAB PO SCH (07:55)
[2016-11-02] MEDS: METOPROLOL TARTRATE 50 MG TAB PO SCH (07:55)
[2016-11-02] MEDS: METOCLOPRAMIDE HCL 10 MG TAB PO SCH (07:55)
[2016-11-02] MEDS: CEROVITE ADV FORMULA TAB PO SCH (07:55)
--- NOTE | 2016-11-02 10:17 | Neurology Consultation ---
Neurology Consultation Date of Consultation: Nov 02, 2016. Attending Physician: Roc Collins MD Primary Care Physician: Rocky So M.D. Reason for Consultation: Left-sided numbness History of Present Illness Source: patient, clinic records, hospital records This is a 56-year-old female who normally follows with Dr. Goins in outpatient neurology clinic. Was previously seen by Dr. 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 Patient is currently followed in neurology clinic for chronic migraine headaches. Patient presented to the hospital this admission due to chest pain and left arm pain that she describes as an achy pain. She denies any changes to her normal daily chronic migraine headaches. She reports no change to her baseline shortness of breath with asthma. She did report some palpitations. She denied any shooting pain or radiculopathy type pain in her arms or legs. She did report a left lower quadrant abdominal pain. The reason that she requested a neurology consult was she was concerned that she had new type of numbness on her left side. She does admit to intermittent numbness in the past but reports that mainly it was over her left face when she was tired or fatigued. She does report some episodes of increased numbness in the left side after Botox injection for chronic migraine. She reports that this episode of numbness was much more severe and different quality over the left side of her face, arm, and leg. She reports there has been some improvement over the last day and is now mostly in her left arm and face. Headache description: Patient reports that her migraine headaches tend to be generalized and more over the left side. There is a throbbing quality to them. She will get light and sound sensitive. She will have visual auras of bursting stars. She may get nauseous. She reports that she's had migraine headaches and she was younger. Previous therapeutic trials of included Topamax, Cymbalta, Depakote, Botox, metoprolol and propranolol, nortriptyline and amitriptyline, Fioricet, baclofen Does not appear that the patient is tried gabapentin In addition on review of systems the patient reports generalized increase in fatigue and tiredness. She reports that she is compliant with her CPAP but has not been reevaluated for CPAP settings in the last 10 years. Past Medical/Surgical History Significant for objective sleep apnea, CAD, hypertension, dyslipidemia Social History Patient is normally independent in her activities of daily living. Alcohol Use: none Housing Status: lives with significant other Allergies Coded Allergies: Cephalexin (Verified Allergy, Intermediate, YEAST INFECTION, 10/31/16) Latex1 -Allergic Contact Dermititis (Verified Allergy, Intermediate, RASH- ITCHINESS, 10/31/16) Allergy with high doses Lisinopril (Verified Allergy, Intermediate, COUGH, 10/31/16) Amitriptyline (Verified Adverse Reaction, Mild, "Made me tired", 10/31/16) Prednisone (Verified Adverse Reaction, Unknown, ELEVATED BP-"FELT FUNNY", 10/31/16) Current Inpatient Medications Current Inpatient Medications Medications (Trade) Dose Ordered Sig/Ankit Route Start Time Stop Time Status Last Admin Dose Admin Acetaminophen (Tylenol Tab) 650 mg Q4H PRN PO 10/31/16 20:45 11/30/16 20:44 Ondansetron HCl (Zofran Inj) 4 mg Q6H PRN IV 10/31/16 20:45 11/30/16 20:44 Nitroglycerin (Nitrostat Tab) 0.4 mg UD PRN SL 10/31/16 20:45 11/30/16 20:44 Aspirin (Ecotrin Tab) 81 mg QAM PO 11/01/16 09:00 12/01/16 08:59 11/02/16 07:55 81 MG Miscellaneous Information (Pharmacist Discharge Med Rec Consult) 1 ea UD PRN N/A 10/31/16 21:00 11/30/16 20:59 Clopidogrel Bisulfate (plAVix TAB) 75 mg QAM PO 11/01/16 09:00 12/01/16 08:59 11/02/16 07:55 75 MG Duloxetine HCl (Cymbalta Cap) 60 mg QAM PO 11/01/16 09:00 12/01/16 08:59 11/02/16 07:54 60 MG Duloxetine HCl (Cymbalta Cap) 30 mg QAM PO 11/01/16 09:00 12/01/16 08:59 11/02/16 07:54 30 MG Salmeterol Xinafoate/ Fluticasone (Advair Diskus 250/50 Inh) 1 puff BID INH 11/01/16 09:00 12/01/16 08:59 11/02/16 07:54 1 PUFF Gabapentin (Neurontin Cap) 300 mg TID PO 11/01/16 09:00 12/01/16 08:59 11/02/16 07:54 300 MG Loratadine (Claritin Tab) 10 mg QAM PO 11/01/16 09:00 12/01/16 08:59 11/02/16 07:55 10 MG Losartan Potassium (coZAAR TAB) 25 mg QPM PO 11/01/16 21:00 12/01/16 20:59 11/01/16 20:58 25 MG Metoclopramide HCl (Reglan Tab) 10 mg BIDM PO 11/01/16 07:30 12/01/16 07:59 11/02/16 07:55 10 MG Metoprolol Tartrate (Lopressor Tab) 50 mg BID PO 11/01/16 09:00 12/01/16 08:59 11/02/16 07:55 50 MG Multivitamins/ Minerals (Multivitamin W/ Minerals Tab) 1 tab QAM PO 11/01/16 09:00 12/01/16 08:59 11/02/16 07:55 1 TAB Pantoprazole Sodium (Protonix Tab) 40 mg BID PO 11/01/16 09:00 12/01/16 08:59 11/02/16 07:54 40 MG Rosuvastatin Calcium (Crestor Tab) 40 mg QPM PO 11/01/16 21:00 12/01/16 20:59 11/01/16 20:58 40 MG Vitamin B Complex (Vitamin B Complex) 1 tab QAM PO 11/01/16 09:00 12/01/16 08:59 11/02/16 07:54 1 TAB Cholecalciferol (Vitamin D Tab) 5,000 inter.unit QAM PO 11/01/16 09:00 12/01/16 08:59 11/02/16 07:54 5,000 INTER.UNIT Miscellaneous (Iv Fluids Completed) 1 ea PRN PRN N/A 10/31/16 21:15 10/31/17 21:14 Review of Systems Complete review of systems otherwise negative except for the above noted in history of present illness Physical Exam Vital Signs (Past 24 Hrs): Date Time Temp Pulse Resp B/P Pulse Ox O2 Delivery O2 Flow Rate FiO2 11/02/16 07:34 36.4 78 18 105/75 93 Room Air 11/02/16 04:00 CPAP 11/02/16 03:56 36.5 76 16 126/84 94 CPAP 11/01/16 23:58 36.6 85 18 131/76 94 BiPAP 11/01/16 23:30 CPAP 11/01/16 20:00 93 Room Air 11/01/16 19:53 81 93 11/01/16 19:41 36.5 83 18 134/83 92 Room Air 11/01/16 16:00 Room Air 11/01/16 15:44 36.3 77 20 136/79 93 Room Air 11/01/16 12:00 Room Air 11/01/16 11:16 36.7 108 18 152/84 92 Room Air Gen.: Patient is alert and sitting in bed, in no acute distress. HEENT: Normocephalic /atraumatic, no scleral icterus Heart: Regular rate and rhythm Extremities: No gross deformities or rashes noted Neurological examination: Mental status: Patient is alert and oriented x3. Attention and concentration normal for the situation. Good fund of knowledge. Able to give her own history. Speech is fluent without any dysarthria or aphasia noted Cranial nerve: Funduscopic examination was unremarkable. No papilledema. Pupils equally round and reactive to light. Extraocular muscles intact without nystagmus. No facial asymmetry noted. Decreased facial sensation over the left upper and lower face that did not split midline. Tongue is midline. Good palatal elevation. Good shoulder shrug bilaterally. Hearing grossly intact to voice. Strength: 5/5 both proximal and distally in all extremities. Minimal pronator drift on the left. Sensation: Altered sensation reported normal left upper extremity Deep tendon reflexes: +2 in bilateral biceps, brachioradialis and patellar. Toes were downgoing to plantar stimulation Coordination: Patient had good finger to nose without dysmetria Station within the bed was normal Laboratory Results Past 24 Hours: 11/01/16 11:05 Test 11/01/16 11:05 Chemistry Specimen Hemolysis Imaging CAT scan done this admission did not show any acute process MRI of the brain in August 2015 did not show any acute changes Impression This is a 56-year-old female who presents with chest pain and reports of new altered sensation on the left side. Overall not sure if her sensory changes are new versus pseudo-exacerbations from previous midbrain stroke on the right and paresthesias associated with chronic migraine headaches. Discussed with the patient that I do not think that the Botox is directly causing any harm or damage to her nerves, but maybe changing migrainous features. Plan While I have a low suspicion for any acute new intracranial lesion, considering that the patient is adamant that she has a new type of numbness on the left side and she does have stroke risk factors, it would be reasonable to get MRI of the brain to rule out acute stroke. Order for MRI of the brain has been placed. Otherwise patient follow-up with Dr. Goins in neurology clinic as previously scheduled for management of chronic migraine. It appears that there has been some discussion in outpatient clinic notes for trial of Trokendi XR versus gabapentin for migraine prophylaxis. Patient should continue with Botox for chronic migraine. I did briefly consider obtaining an EEG for further evaluation of sensory complaints, but for the most part there is nothing in her presentation or semiology that is highly suggestive of focal seizures. Could be considered as an outpatient if needed. Thank you for allowing me to participate in this patient's care. If there is any questions or concerns, feel free to call/page me.
[2016-11-02 11:42] VITALS: BP 145/88; PULSE 77; TEMP 36; O2SAT 97
[2016-11-02 11:50] VITALS: BP 137/81; PULSE 76; TEMP 36.8; O2SAT 92
--- NOTE | 2016-11-02 14:19 | DIAGNOSTIC IMAGING REPORT ---
Brain MRI WITHOUT CONTRAST HISTORY: New left sided numbness TECHNIQUE: Multiplanar multisequence MRI of the brain was performed without the use of contrast. COMPARISON STUDY: None. FINDINGS: There are no areas of restricted diffusion to suggest acute infarction. The midline structures are intact. The paranasal sinuses are clear. The mastoid air cells are clear. The ventricles and sulci are within normal limits for age. There is no mass, hematoma, midline shift. The major vascular flow-voids at the skull base are well maintained. IMPRESSION: No acute intracranial abnormality. Electronically signed by: Todd Wolff M.D. 11/02/2016 2:18 PM Dictated Date/Time: 11/02/2016 2:12 PM
--- NOTE | 2016-11-02 14:56 | Discharge Instructions ---
Discharge Instructions Date of Service Nov 02, 2016. Admission Reason for Admission: Chest Pain Discharge Discharge Diagnosis / Problem: chest pain, left face and arm numbness Discharge Goals Goal(s): Decrease discomfort Activity Recommendations Activity Limitations: resume your previous activity . Instructions / Follow-Up Instructions / Follow-Up FOLLOWUP WITH FAMILY DOCTOR Rocky Olvera ON November AT 12:45PM FOLLOWUP WITH NEUROLOGY SCHEDULED. Current Hospital Diet Patient's current hospital diet: AHA Diet (Heart Healthy) Discharge Diet Recommended Diet: AHA Diet (Heart Healthy) Pending Studies Studies pending at discharge: no Laboratory Results Hemoglobin A1c Test 10/31/16 19:00 Range/Units Estimated Average Glucose 123 mg/dl Hemoglobin A1c 5.9 H 4.5-5.6 % Lipid Panel Test 11/01/16 07:19 Range/Units Triglycerides Level 115 0-150 mg/dl Cholesterol Level 137 0-200 mg/dl HDL Cholesterol 53 mg/dl Cholesterol/HDL Ratio 2.6 LDL Cholesterol, Calculated 61 mg/dl Medical Emergencies . Who to Call and When: Medical Emergencies: If at any time you feel your situation is an emergency, please call 911 immediately. . Non-Emergent Contact Non-Emergency issues call your: Primary Care Provider . . "Provider Documentation" section prepared by Roc Collins. . VTE Core Measure Inpt VTE Proph given/why not?: SCD's
[2016-11-02 15:06] VITALS: BP 137/81; PULSE 76; TEMP 36.8; O2SAT 92
--- NOTE | 2016-11-02 15:59 | Progress Note ---
Internal Med Progress Note Date of Service: Nov 02, 2016. Provider Documentation: SUBJECTIVE: resting comfortably no chest pain or sob still has some numbness in left face and arm afebrile OBJECTIVE: Vital Signs-as noted below Exam: General-Alert and oriented ENT-normal hearing Neck-no neck masses Lungs-cta b/l no wheezing or crackles Heart-s1 and s2 heard regular rate and rhythm no murmurs Abdomen-soft bowel sounds present no tenderness no distension Extremities-no edema no erythema Neuro-Alert and oriented moves extremities Lab data as noted below. ASSESSMENT & PLAN: CHEST PAIN serial ce and ekg unremarkable stress test negative currently asymptomatic Left face and arm numbness says had before when had Botox inj ct head negative. requests to be seen by neurology. 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 On Plavix and statin; HTN continue metoprolol and losartan will monitor ASTHMA stable on home inhalers ANGELICA CPAP as per home settings Discharged home Vital Signs: Date Time Temp Pulse Resp B/P Pulse Ox O2 Delivery O2 Flow Rate FiO2 11/02/16 15:06 36.8 76 18 92 Room Air 11/02/16 12:30 Room Air 11/02/16 11:50 36.8 76 18 137/81 92 Room Air 11/02/16 11:42 36.0 77 20 145/88 97 Room Air 11/02/16 08:00 Room Air 11/02/16 07:34 36.4 78 18 105/75 93 Room Air 11/02/16 04:00 CPAP 11/02/16 03:56 36.5 76 16 126/84 94 CPAP 11/01/16 23:58 36.6 85 18 131/76 94 BiPAP 11/01/16 23:30 CPAP 11/01/16 20:00 93 Room Air 11/01/16 19:53 81 93 11/01/16 19:41 36.5 83 18 134/83 92 Room Air 11/01/16 16:00 Room Air
--- NOTE | 2016-11-02 18:00 | Discharge Summary ---
Discharge Summary Date of Service Nov 02, 2016. Discharge Summary Admission Date: Oct 31, 2016 at 21:05 Discharge Date: Nov 02, 2016 Discharge Disposition: Home Principal Diagnosis: CHEST PAIN LEFT FACIAL AND ARM NUMBNESS Secondary Diagnoses/Problems: (1) Asthma, moderate persistent Status: Chronic (2) Brice esophagus Status: Chronic (3) CVA (cerebral vascular accident) Status: Chronic (4) Fibromyalgia Status: Chronic (5) Gastroparesis Status: Chronic (6) GERD (gastroesophageal reflux disease) Status: Chronic (7) HTN (hypertension) Status: Chronic (8) IPMN (intraductal papillary mucinous neoplasm) Status: Chronic (9) Migraine Status: Chronic (10) ANGELICA (obstructive sleep apnea) Status: Chronic Procedures: CT HEAD: No acute intracranial findings MRI HEAD: No acute intracranial abnormality. STRESS ECHO: : Normal pharmacologic stress echocardiogram. No echocardiographic or ECG evidence of myocardial ischemia having achieved heart rate adequate for diagnostic purposes. Consultations: NEUROLOGY Medication Reconciliation Continued Medications: Albuterol Sulf (Albuterol Sulfate) 2.5 Mg/3 Ml Nebu 1 DOSE INH Q4H PRN for Shortness of Breath Albuterol Sulfate (Proventil Hfa) 108 Mcg/Act Aer 2 PUFFS INH Q4H PRN for Shortness of Breath B-Complex W/ Folic Acid (Super B Complex Maxi) 1 Tab Tab 1 TAB PO QAM Baclofen (Lioresal) 10 Mg Tab 10 MG PO TID PRN for Muscle Spasms, TAB Cholecalciferol (D 5000) 5,000 Unit Cap 5000 UNITS PO QAM Clopidogrel (Plavix) 75 Mg Tab 75 MG PO QAM Coenzyme Q10 (Ubidecarenone) (Co Q 10) 100 Mg Cap 100 MG PO QAM Duloxetine HCl (Duloxetine HCl) 60 Mg Cap 60 MG PO QAM TOTAL DOSE 90 MG. Duloxetine HCl (Cymbalta) 30 Mg Cap 30 MG PO QAM for 30 Days, #30 CAP 2 Refills TOTAL DOSE 90 MG. Fluticasone Prop/Salmeterol (Advair Diskus 250/50 60 Dose) 1 Ea Aerp 1 PUFF INH BID, INHALER Fluticasone Propionate (Nasal) (Flonase Allergy Relief) 50 Mcg/Act Spr 1 SPRAY CRISTIANO BID Gabapentin (Neurontin) 300 Mg Cap 300 MG PO TID, CAP Loratadine (Claritin) 10 Mg Tab 10 MG PO QAM, TAB Losartan Potassium (Cozaar) 25 Mg Tab 25 MG PO QPM Lutein (Lutein) 10 Mg Tab 10 MG PO QAM Metoclopramide (Reglan) 10 Mg Tab 10 MG PO BIDM, #6 TAB NAUSEA Metoprolol Tartrate (Lopressor) (Lopressor) 50 Mg Tab 50 MG PO BID, TAB Multiple Vitamins W/ Minerals (One Daily 50 Plus) 1 Tab Tab 1 TAB PO QAM Pantoprazole (Protonix) 40 Mg Tab 40 MG PO BID, #30 TAB Rosuvastatin Calcium (Crestor) 40 Mg Tab 40 MG PO QPM, TAB Saline ([place] Nasal [place]) 0.65 % Spr 1 SPRAY CRISTIANO Q2H PRN for DRYNESS Trazodone Hcl (Trazodone) 100 Mg Tab 100 MG PO HS PRN for Insomnia Triamcinolone Acet (Triamcinolone Acetonide) 45 Appln/15 Gm Cr 1 APPLN TOP BID for 30 Days, #15 GM 1 Refill Admission Information HPI (per Admitting provider): 56 year old female who presents to the ER with chest pain. Patient reports she was sitting at her desk when she developed mid sternal chest pain with associated left arm heaviness and numbness. Patient describes the pain as a pressure. She reports associated shortness of breath, nausea, diaphoresis, and lightheadedness. She also had numbness on the left side of her body which she reports is residual from her prior stroke and only appears when she is tried. Patient reports resolution of her symptoms with nitroglycerin. She denies abdominal pain, vomiting, or diarrhea. No fever or chills. She denies any urinary symptoms. In the ER, initial troponin is negative and EKG does not show any acute ST changes. Patient given a full dose ASA. Physical Exam (per Admitting): General Appearance: no apparent distress Head: normocephalic Eyes: normal inspection, PERRL ENT: hearing grossly normal Neck: supple, no JVD Cardiovascular: regular rate, rhythm, no edema, normal peripheral pulses Abdomen/GI: normal bowel sounds, non tender, soft Extremities/Musculoskelatal: normal inspection, no calf tenderness Neurologic/Psych: alert, normal mood/affect, oriented x 3, + pertinent finding (mild sensory deficit on the left side; otherwise no other motor or sensory deficits ) Skin: normal color, warm/dry Physical Exam (per Admitting): General Appearance: no apparent distress Head: normocephalic Eyes: normal inspection, PERRL ENT: hearing grossly normal Neck: supple, no JVD Cardiovascular: regular rate, rhythm, no edema, normal peripheral pulses Abdomen/GI: normal bowel sounds, non tender, soft Extremities/Musculoskelatal: normal inspection, no calf tenderness Neurologic/Psych: alert, normal mood/affect, oriented x 3, + pertinent finding (mild sensory deficit on the left side; otherwise no other motor or sensory deficits ) Skin: normal color, warm/dry Hospital Course CHEST PAIN serial ce and ekg unremarkable stress test negative currently asymptomatic Left face and arm numbness says had before when had Botox inj ct head negative. requests to be seen by neurology. 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 On Plavix and statin; HTN continue metoprolol and losartan will monitor ASTHMA stable on home inhalers ANGELICA CPAP as per home settings Discharged home Total time spent on discharge = 35MINUTES This includes examination of the patient, discharge planning, medication reconciliation, and communication with other providers. Discharge Instructions Discharge Instructions Date of Service Nov 02, 2016. Admission Reason for Admission: Chest Pain Discharge Discharge Diagnosis / Problem: chest pain, left face and arm numbness Discharge Goals Goal(s): Decrease discomfort Activity Recommendations Activity Limitations: resume your previous activity . Instructions / Follow-Up Instructions / Follow-Up FOLLOWUP WITH FAMILY DOCTOR Rocky Olvera ON November AT 12:45PM FOLLOWUP WITH NEUROLOGY SCHEDULED. Current Hospital Diet Patient's current hospital diet: AHA Diet (Heart Healthy) Discharge Diet Recommended Diet: AHA Diet (Heart Healthy) Pending Studies Studies pending at discharge: no Laboratory Results Hemoglobin A1c Test 10/31/16 19:00 Range/Units Estimated Average Glucose 123 mg/dl Hemoglobin A1c 5.9 H 4.5-5.6 % Lipid Panel Test 11/01/16 07:19 Range/Units Triglycerides Level 115 0-150 mg/dl Cholesterol Level 137 0-200 mg/dl HDL Cholesterol 53 mg/dl Cholesterol/HDL Ratio 2.6 LDL Cholesterol, Calculated 61 mg/dl Medical Emergencies . Who to Call and When: Medical Emergencies: If at any time you feel your situation is an emergency, please call 911 immediately. . Non-Emergent Contact Non-Emergency issues call your: Primary Care Provider . . "Provider Documentation" section prepared by Roc Collins. . VTE Core Measure Inpt VTE Proph given/why not?: SCD's
[2017-02-22] MEDS ORDERED: SUCR1TAB29 PO (10:44)
[2017-02-22] MEDS ORDERED: DEXL60CA4 PO (10:44)
== END 2016-11-02 16:09 | disposition home or self-care (01) ==
LOC: ENRESERVTM → ENRESERVDT → C.EDB 18:18 → C.2T 21:05 → EDBEDREQ 21:06
PROVIDERS: ADMIT Internal Medicine; ATTEND Internal Medicine
DX: R07.9 Chest pain, unspecified (principal); R20.0 Anesthesia of skin; J45.909 Unspecified asthma, uncomplicated; K22.70 Barrett's esophagus without dysplasia; M79.7 Fibromyalgia; I25.10 Atherosclerotic heart disease of native coronary artery without angina pectoris; E78.5 Hyperlipidemia, unspecified; K31.84 Gastroparesis; K21.9 Gastro-esophageal reflux disease without esophagitis; G47.33 Obstructive sleep apnea (adult) (pediatric); I10 Essential (primary) hypertension; Z87.891 Personal history of nicotine dependence; Z86.73 Personal history of transient ischemic attack (TIA), and cerebral infarction without residual deficits; Z90.49 Acquired absence of other specified parts of digestive tract; Z83.3 Family history of diabetes mellitus; Z84.1 Family history of disorders of kidney and ureter; Z82.49 Family history of ischemic heart disease and other diseases of the circulatory system

== ENCOUNTER 2016-11-07 15:20 | Emergency (ER) | payer BC ==
[~2016-11-07 15:20] MED LIST changes: -ACID REFLUX PO; -ADVIN10/60 INH; +ADVIN25/60 INH; +ALBINS INH; -ALBU1AER9 INH; +ALBUAER INH; -CHOL1000 PO; +CHOLCAP10 PO; +CLR10 PO; +CYM/30 PO; -FEXO1TAB46 PO; +FLUT0.15 NAE; -FRS/40 PO; +METO-157 PO; +METO50TA16 PO; +MULT50TA3 PO; -MULTTAB PO; +PANT1TAB48 PO; +SALI0.6510 NAE; -SALI0.6517; -TPRSR50 PO; +TRMCR515 TOP
[2016-11-07 15:22] VITALS: TEMP 36.1
[2016-11-07] MEDS ORDERED: SODIUM CHLORIDE 0.9% 1000ML 1,000 ML IV STA (15:39)
[2016-11-07] MEDS ORDERED: PANTOprazole INJ 80 MG in DEXTROSE 5% 100ML 100 ML IV SCH ×4 (16:00)
[2016-11-07 16:03] LABS: BASO % 0.6 %; BASO ABS # 0.04 K/uL (0-0.2); COMPLETE YES; EOS % 1.7 %; HEMATOCRIT 42.3 % (37-47); IG% 0.3 %; LYMPH % 30.9 %; LYMPH ABS # 2.19 K/uL (1.2-3.4); MEAN CELL VOLUME 90.8 fL (80-100); MEAN CORPUSCULAR HGB CONC 33.1 g/dl (32-36); MEAN PLATELET VOLUME 9.2 fL (7.4-10.4); MONO % 8.2 %; NEUT % 58.3 %; PLATELET COUNT 193 K/uL (130-400); RED BLOOD COUNT 4.66 M/uL (4.2-5.4); WHITE BLOOD COUNT 7.09 K/uL (4.8-10.8)
[2016-11-07 16:14] VITALS: O2SAT 94
[2016-11-07] MEDS ORDERED: OPTIRAY 320 IV PRN (16:15)
[2016-11-07 16:17] LABS: PARTIAL THROMBOPLASTIN RATIO 1.1; PROTHROMBIN TIME (PATIENT) 10.5 SECONDS (9.0-12.0)
[2016-11-07 16:24] LABS: ALT/SGPT 38 U/L (12-78); AST/SGOT 17 U/L (15-37); BLOOD UREA NITROGEN 8 mg/dl (7-18); BUN/CREATININE RATIO 8.4 (10-20); CALCIUM 8.9 mg/dl (8.5-10.1); CARBON DIOXIDE 28 mmol/L (21-32); CHLORIDE 107 mmol/L (98-107); CREATININE 0.95 mg/dl (0.60-1.20); GLUCOSE 90 mg/dl (70-99); POTASSIUM 3.7 mmol/L (3.5-5.1); SODIUM 142 mmol/L (136-145)
--- NOTE | 2016-11-07 16:24 | EMERGENCY ROOM VISIT NOTE ---
History First contact with patient: 15:27 Chief Complaint: RECTAL BLEEDING Stated Complaint: LOWER PAIN, RECTAL BLEEDING History of Present Illness The patient is a 56 year old female who presents to the Emergency Room with complaints of rectal bleeding and lower abdominal pain for the past 2 months. This problem has not been evaluated previously. Patient states that today she noticed that she was passing some blood clots during a bowel movement. Patient was recently admitted a week ago for a stroke rule out, and had a PCP follow-up appointment today where she mentioned her rectal bleeding. She was heme positive at the office, and was sent to the ER for further evaluation. Patient reports ongoing lower abdominal pain that she describes as crampy and 5/10. She denies any history of previous rectal bleeding in the past. She does have a history of hemorrhoids, but states she felt this blood was coming from inside her rectum. She takes Plavix, no aspirin or other blood thinners. She denies any fevers, chills, chest pain, shortness of breath, syncope, back pain, vomiting or diarrhea, urinary symptoms. She denies vaginal bleeding, states her last period was in 2009. Review of Systems GENERAL: Denies fevers, chills, malaise, fatigue, unintentional weight changes. HEENT: Denies dizziness, visual problems, hearing loss, tinnitus. Denies difficulty swallowing or oral lesions. PULMONARY: Denies cough, shortness of breath, sputum production or hemoptysis. CARDIOVASCULAR: Denies chest pain, palpitations, dyspnea on exertion, orthopnea or peripheral edema. GASTROINTESTINAL: + Abdominal pain, blood in stool. Denies diarrhea, constipation, nausea, vomiting. GENITOURINARY: Denies dysuria, frequency, urgency or nocturia. NEUROLOGIC: Denies history of epilepsy, CVA, TIA or chronic headaches. MUSCULOSKELETAL: Denies history of joint tenderness/swelling. SKIN: Denies rashes or lesions. PSYCHIATRIC: Denies history of depression or mental illness. ENDOCRINE: Denies history of diabetes, thyroid disorders, abnormal hair growth or sexual dysfunction. HEMATOLOGIC: Denies history of bleeding or clotting disorders, denies abnormal bleeding or bruising. She takes Plavix daily. Past Medical/Surgical History Medical Problems: (1) Asthma, moderate persistent (2) Brice esophagus (3) CVA (cerebral vascular accident) (4) Fibromyalgia (5) Gastroparesis (6) GERD (gastroesophageal reflux disease) (7) HTN (hypertension) (8) IPMN (intraductal papillary mucinous neoplasm) (9) Migraine (10) ANGELICA (obstructive sleep apnea) Surgical Problems: (1) H/O tubal ligation (2) Hx of cervical discectomy (3) S/P cholecystectomy Family History FH: heart disease FATHER (CABG in his 70s) FH: ovarian cancer MOTHER Social History Smoking Status: Former Smoker Alcohol Use: none Housing Status: lives with significant other Current/Historical Medications Scheduled B-Complex W/ Folic Acid (Super B Complex Maxi), 1 TAB PO QAM Cholecalciferol (D 5000), 5,000 UNITS PO QAM Clopidogrel (Plavix), 75 MG PO QAM Coenzyme Q10 (Ubidecarenone) (Co Q 10), 100 MG PO QAM Duloxetine HCl (Duloxetine HCl), 60 MG PO QAM Duloxetine HCl (Cymbalta), 30 MG PO QAM Fluticasone Prop/Salmeterol (Advair Diskus 250/50 60 Dose), 1 PUFF INH BID Fluticasone Propionate (Nasal) (Flonase Allergy Relief), 1 SPRAY CRISTIANO BID Gabapentin (Neurontin), 300 MG PO TID Loratadine (Claritin), 10 MG PO QAM Losartan Potassium (Cozaar), 25 MG PO QPM Lutein (Lutein), 10 MG PO QPM Metoclopramide (Reglan), 10 MG PO BIDM Metoprolol Tartrate (Lopressor) (Lopressor), 50 MG PO BID Multiple Vitamins W/ Minerals (One Daily 50 Plus), 1 TAB PO QAM Pantoprazole (Protonix), 40 MG PO BID Rosuvastatin Calcium (Crestor), 40 MG PO QPM Scheduled PRN Albuterol Sulf (Albuterol Sulfate), 1 DOSE INH Q4H PRN for Shortness of Breath Albuterol Sulfate (Proventil Hfa), 2 PUFFS INH Q4H PRN for Shortness of Breath Baclofen (Lioresal), 10 MG PO TID PRN for Muscle Spasms Saline ([place] Nasal [place]), 1 SPRAY CRISTIANO Q2H PRN for DRYNESS Trazodone Hcl (Trazodone), 100 MG PO HS PRN for Insomnia Triamcinolone Acet (Triamcinolone Acetonide), 1 APPLN TOP BID PRN for Allergies Coded Allergies: Cephalexin (Verified Allergy, Intermediate, YEAST INFECTION, 10/31/16) Latex1 -Allergic Contact Dermititis (Verified Allergy, Intermediate, RASH- ITCHINESS, 10/31/16) Allergy with high doses Lisinopril (Verified Allergy, Intermediate, COUGH, 10/31/16) Amitriptyline (Verified Adverse Reaction, Mild, "Made me tired", 10/31/16) Prednisone (Verified Adverse Reaction, Unknown, ELEVATED BP-"FELT FUNNY", 10/31/16) Physical Exam Vital Signs Date Time Temp Pulse Resp B/P Pulse Ox O2 Delivery O2 Flow Rate FiO2 11/07/16 19:52 72 16 131/81 98 11/07/16 17:22 77 18 139/82 96 Room Air 11/07/16 16:54 84 11/07/16 16:14 94 Room Air 11/07/16 15:22 36.1 82 20 157/87 96 Room Air Physical Exam CONSTITUTIONAL: No acute distress. Well appearing and well nourished. Alert and oriented X 4 with normal affect. She is not pale. HEENT: Normocephalic, atraumatic. Pupils equal, round and reactive to light, EOMI. TMs normal. Pharynx normal. Moist mucous membranes. NECK: Supple, full active range of motion without discomfort. RESPIRATORY: Clear to auscultation bilaterally with no wheezing, crackles, rhonchi or stridor. Equal expansion bilaterally. CARDIOVASCULAR: Regular rate and rhythm with no murmurs, rubs or gallops. Normal peripheral perfusion. No edema. GASTROINTESTINAL: + Moderate tenderness diffuse lower abdomen, no rebound, no peritoneal signs. Soft, nondistended. Bowel sounds present in all quadrants. Rectal exam done with nursing staff as chief general pediatric clinic. There is small amount of gross blood around the external rectum that was cleaned prior to internal exam. Few small hemorrhoids noted, no active bleeding from these and nontender to palpation. No internal tenderness, internal hemorrhoids, fissures, masses palpated on internal NANDINI. Stool is dark in color and is heme-positive. MUSCULOSKELETAL: Full range of motion of all joints without discomfort. INTEGUMENTARY: Warm, pink, dry. No rash or other significant dermatologic conditions noted. No abnormal bruising noted. NEUROLOGIC: Cranial nerves II-XII grossly intact. No focal neurologic deficits noted. Medical Decision & Procedures ER Provider Diagnostic Interpretation: IMPRESSION: 1. No acute process within the abdomen or pelvis. 2. Sigmoid diverticulosis without evidence for acute diverticulitis. No mucosal lesion identified although sensitivity significantly diminished given CT technique. 3. Small to moderate sized hiatal hernia. 4. Fatty liver. Laboratory Results 11/07/16 15:53 Red Blood Count 4.66, Mean Corpuscular Volume 90.8, Mean Corpuscular Hemoglobin 30.0, Mean Corpuscular Hemoglobin Concent 33.1, Mean Platelet Volume 9.2, Neutrophils (%) (Auto) 58.3, Lymphocytes (%) (Auto) 30.9, Monocytes (%) (Auto) 8.2, Eosinophils (%) (Auto) 1.7, Basophils (%) (Auto) 0.6, Neutrophils # (Auto) 4.14, Lymphocytes # (Auto) 2.19, Monocytes # (Auto) 0.58, Eosinophils # (Auto) 0.12, Basophils # (Auto) 0.04 11/07/16 15:53 Test 11/07/16 15:53 11/07/16 16:03 11/07/16 16:10 White Blood Count 7.09 K/uL (4.8-10.8) Red Blood Count 4.66 M/uL (4.2-5.4) Hemoglobin 14.0 g/dL (12.0-16.0) Hematocrit 42.3 % (37-47) Mean Corpuscular Volume 90.8 fL (80-100) Mean Corpuscular Hemoglobin 30.0 pg (25-34) Mean Corpuscular Hemoglobin Concent 33.1 g/dl (32-36) Platelet Count 193 K/uL (130-400) Mean Platelet Volume 9.2 fL (7.4-10.4) Neutrophils (%) (Auto) 58.3 % Lymphocytes (%) (Auto) 30.9 % Monocytes (%) (Auto) 8.2 % Eosinophils (%) (Auto) 1.7 % Basophils (%) (Auto) 0.6 % Neutrophils # (Auto) 4.14 K/uL (1.4-6.5) Lymphocytes # (Auto) 2.19 K/uL (1.2-3.4) Monocytes # (Auto) 0.58 K/uL (0.11-0.59) Eosinophils # (Auto) 0.12 K/uL (0-0.5) Basophils # (Auto) 0.04 K/uL (0-0.2) RDW Standard Deviation 45.0 fL (36.4-46.3) RDW Coefficient of Variation 13.6 % (11.5-14.5) Immature Granulocyte % (Auto) 0.3 % Immature Granulocyte # (Auto) 0.02 K/uL (0.00-0.02) Erythrocyte Sedimentation Rate 10 mm/hr (0-21) Prothrombin Time 10.5 SECONDS (9.0-12.0) Prothromb Time International Ratio 1.0 (0.9-1.1) Activated Partial Thromboplast Time 27.3 SECONDS (21.0-31.0) Partial Thromboplastin Ratio 1.1 Anion Gap 7.0 mmol/L (3-11) Estimated GFR () 78.2 Estimated GFR (Non- 67.4 BUN/Creatinine Ratio 8.4 (10-20) Calcium Level 8.9 mg/dl (8.5-10.1) Total Bilirubin 0.5 mg/dl (0.2-1) Direct Bilirubin 0.2 mg/dl (0-0.2) Aspartate Amino Transf (AST/SGOT) 17 U/L (15-37) Alanine Aminotransferase (ALT/SGPT) 38 U/L (12-78) Alkaline Phosphatase 122 U/L (45-117) C-Reactive Protein < 0.29 mg/dl (0-0.29) Total Protein 7.0 gm/dl (6.4-8.2) Albumin 3.9 gm/dl (3.4-5.0) Lipase 92 U/L (73-393) Bedside Lactic Acid Venous 0.90 mmol/L (0.90-1.70) Urine Color YELLOW Urine Appearance CLEAR (CLEAR) Urine pH 5.0 (4.5-7.5) Urine Specific [place] 1.013 (1.000-1.030) Urine Protein NEG (NEG) Urine Glucose (UA) NEG (NEG) Urine Ketones NEG (NEG) Urine Occult Blood NEG (NEG) Urine Nitrite NEG (NEG) Urine Bilirubin NEG (NEG) Urine Urobilinogen NEG (NEG) Urine Leukocyte Esterase NEG (NEG) Medications Administered Medications (Trade) Dose Ordered Sig/Ankit Route Start Time Stop Time Status Last Admin Dose Admin Sodium Chloride 1,000 ml @ 999 mls/hr Q1H1M STAT IV 11/07/16 15:39 11/07/16 16:39 DC 11/07/16 16:18 999 MLS/HR Pantoprazole Sodium/Dextrose (Protonix Inj/D5 100ml) 120 ml @ 400 mls/hr NOW IV 11/07/16 16:00 11/07/16 16:51 DC 11/07/16 16:34 400 MLS/HR ED Course Orders placed at the bedside for labs, type and screen, IV fluids and IV protonix, CT of abdomen/pelvis. Discussed with Dr. Roblero, who agrees with my assessment and plan. Patient reassessed and updated on all results. Pain is improved and she has had no recurrence of rectal bleeding while in the ED. Patient discharged home in no distress and ambulatory. Medical Decision CC: Patient presenting with complaint of rectal bleeding and abdominal pain for 2 months. Interpretation of Labs: Labs are unremarkable, no significant abnormalities noted. Differential Diagnosis: Includes, but not limited to upper GI bleed, lower GI bleed, bleeding hemorrhoids, diverticulitis, inflammatory bowel disease, anemia. Summary: Patient alert and in no acute distress on initial exam. Abdomen is mildly tender to palpation diffusely in the lower quadrants, no rebound, no peritoneal signs. Digital rectal exam reveals external hemorrhoids with no active bleeding noted, small amount of bright red blood around the anus, no tenderness or abnormalities internally, heme-positive stool. No anemia or other significant abnormalities noted on labs. CT of the abdomen/pelvis is unremarkable for any acute findings. Given normal workup today, I do not suspect significant GI bleed at this time and feel patient's bleeding is most likely coming from her external hemorrhoids. Patient reassessed multiple times throughout ED stay, with improvement. Patient was encouraged to follow closely with her PCP for reassessment, as well as given strict return precautions should her symptoms progress or worsen. Patient verbalized understanding of discharge plans and instructions. Impression Primary Impression: Rectal bleeding Additional Impression: External hemorrhoids Departure Information Dispostion Home / Self-Care Condition GOOD Referrals Rocky So M.D. (PCP) Patient Instructions Bleeding Rectal, ED Hemorrhoids, [facility] Additional Instructions Follow-up with your PCP in the next 1-2 days for re-check. If you continued to have bleeding in your stool, you may need to see a GI doctor for colonoscopy. Your PCP can refer you for this. Take an [id number] stool softener daily to help reduce constipation and straining which may aggravate her hemorrhoids and increased bleeding. Drink plenty of fluids to stay well hydrated. You have been examined and treated today on an emergency basis only. This is not a substitute for, or an effort to provide, complete comprehensive medical care. It is impossible to recognize and treat all injuries or illnesses in a single emergency department visit. It is therefore important that you follow up closely with your Primary Physician. Call as soon as possible for an appointment so you can make an appointment. Please return to the ER for any worsening symptoms, including severe abdominal pain, large amounts of bleeding from the rectum, vomiting up blood or coffee- grounds, fevers, chills, feeling ill, or any other concerns. Problem Qualifiers
[2016-11-07 16:26] LABS: ALKALINE PHOSPHATASE 122 U/L (45-117); C-REACTIVE PROTEIN < 0.29 mg/dl (0-0.29)
[2016-11-07 16:41] LABS: URINE APPEARANCE CLEAR (CLEAR); URINE BILIRUBIN NEG (NEG); URINE COLOR YELLOW; URINE NITRITE NEG (NEG); URINE SPECIFIC GRAVITY 1.013 (1.000-1.030); UROBILINOGEN NEG (NEG)
[2016-11-07 16:46] LABS: MANUAL MICROSCOPIC REQUIRED? NO; REVIEW REQ? NO
--- NOTE | 2016-11-07 18:46 | DIAGNOSTIC IMAGING REPORT ---
CT OF THE ABDOMEN AND PELVIS WITH CONTRAST CLINICAL HISTORY: Lower abdominal pain and rectal bleeding. COMPARISON STUDY: Right upper quadrant ultrasound October 21, 2009 TECHNIQUE: Following IV administration of 115 mL of Optiray-320, axial images of the abdomen and pelvis were obtained from the lung bases to the proximal femurs. Images were reviewed in the axial, sagittal, and coronal planes. IV contrast was administered without complication. Oral contrast was administered. CT DOSE: 949.42 mGy.cm FINDINGS: Visualized portions of the lower chest demonstrate a 5 mm right middle lobe nodule which is unchanged since CT of November 25, 2013. This is benign. There is a moderate sized hiatal hernia. Fatty infiltration of the liver is noted. There is no biliary ductal dilatation status post cholecystectomy. There is no peripancreatic infiltration. The spleen, adrenal glands and kidneys are normal. There is no hydronephrosis or hydroureter. Note is made of sigmoid diverticulosis without evidence for acute diverticulitis. There is no lymphadenopathy within the abdomen or the pelvis. No mucosal lesions are identified although sensitivity is diminished given CT technique. The appendix is normal. No suspicious skeletal lesions are identified. IMPRESSION: 1. No acute process within the abdomen or pelvis. 2. Sigmoid diverticulosis without evidence for acute diverticulitis. No mucosal lesion identified although sensitivity significantly diminished given CT technique. 3. Small to moderate sized hiatal hernia. 4. Fatty liver. Electronically signed by: Chris Elliott M.D. 11/07/2016 6:45 PM Dictated Date/Time: 11/07/2016 6:39 PM
[2016-11-07 19:52] VITALS: BP 131/81; PULSE 72; O2SAT 98
[2017-02-22] MEDS ORDERED: SUCR1TAB29 PO (10:44)
[2017-02-22] MEDS ORDERED: DEXL60CA4 PO (10:44)
== END 2016-11-07 19:53 | disposition home or self-care (01) ==
LOC: C.EDB 15:21 → C.EDC 19:53
DX: K62.5 Hemorrhage of anus and rectum (principal); K64.4 Residual hemorrhoidal skin tags; R10.30 Lower abdominal pain, unspecified; I10 Essential (primary) hypertension; K22.70 Barrett's esophagus without dysplasia; M79.7 Fibromyalgia; K21.9 Gastro-esophageal reflux disease without esophagitis; J45.909 Unspecified asthma, uncomplicated; G47.33 Obstructive sleep apnea (adult) (pediatric); Z79.02 Long term (current) use of antithrombotics/antiplatelets; Z79.899 Other long term (current) drug therapy; Z86.73 Personal history of transient ischemic attack (TIA), and cerebral infarction without residual deficits; Z87.19 Personal history of other diseases of the digestive system; Z87.891 Personal history of nicotine dependence; Z80.41 Family history of malignant neoplasm of ovary; Z82.49 Family history of ischemic heart disease and other diseases of the circulatory system

== ENCOUNTER → 2016-11-16 | Day surgery (SDC) | payer BC ==
[2016-10-30 10:42] VITALS: Ht 167.6 cm; Wt 104.5 kg
[~2016-11-16] VITALS: Ht 167.6 cm; Wt 104.5 kg
[~2016-11-16] MED LIST changes: +BUPIVACAINE 0.25% 2.5MG/ML PF 10 ML VIAL INFIL ONE; +DEXL60CA4 PO; +IOPAMIDOL INJ 61% 15 ML VIAL ONE; +LIDOCAINE HCL 1% MPF 5 ML VIAL ONE; +SUCR1TAB29 PO
--- NOTE | 2016-11-16 12:58 | History & Physical Bridge - [place] ---
H&P Re-Evaluation Bridge Note: I have examined the patient, reviewed the History & Physical and in the interval since the performance of the History & Physical I have noted the following changes of clinical significance: No changes noted
[2016-11-16 13:20] VITALS: TEMP 37.3
--- NOTE | 2016-11-16 13:29 | Discharge Instructions ---
Discharge Instructions Date of Service November 16, 2016. Visit Reason for Visit: Sacroiliitis Discharge Discharge Diagnosis / Problem: low back pain Discharge Goals Goal(s): Decrease discomfort, Improve function Activity Recommendations Activity Limitations: resume your previous activity Anesthesia . Post Anesthesia Instructions: If you have had General Anesthesia or IV Sedation: * Do not drive today. * Resume driving when surgeon permits. * Do not make important decisions or sign legal documents today. * Call surgeon for: 1. Temperature elevations greater than 101 degrees F. 2. Uncontrollable pain. 3. Excessive bleeding. 4. Persistent nausea and vomiting. 5. Medication intolerance (nausea, vomiting or rash). * For nausea and vomiting use only clear liquids such as: tea, soda, bouillon until nausea subsides, then gradually increase diet as tolerated. * If you have any concerns or questions, call your surgeon's office. If physician is unavailable and it is an emergency, call 911 or go to the nearest emergency room. . Diet Recommendations Recommended Home Diet: resume previous diet Procedures Procedures Performed: Right Sacroiliac Joint Injection Pending Studies Studies pending at discharge: no Medical Emergencies . Who to Call and When: Medical Emergencies: If at any time you feel your situation is an emergency, please call 911 immediately. . Non-Emergent Contact Non-Emergency issues call your: Specialist . . "Provider Documentation" section prepared by Tomi Moody. .
[2016-11-16 13:37] VITALS: BP 158/94; PULSE 86; O2SAT 94
--- NOTE | 2016-11-16 15:34 | OPERATIVE REPORT ---
DATE OF OPERATION: 11/16/2016 PREOPERATIVE DIAGNOSES: Right sacroiliitis, underlying scoliosis. POSTOPERATIVE DIAGNOSIS: Same. PROCEDURE: Right sacroiliac joint injection under fluoroscopic guidance. INDICATIONS: The patient is a 56-year-old white female who was evaluated at the request of Dr. Jean Haji for her lower right-sided low back pain. She really localized her pain to the sacroiliac joint, and she has not responded to conservative measures. She is felt to have classic symptoms of sacroiliitis and presents today for an SI joint injection to provide her with relief. PHYSICAL EXAMINATION: Pleasant female seated comfortably. She has point tenderness to palpation of the right SI joint. It is now worse with extension or flexion. She has normal lower extremity strength and she has a positive Chasity maneuver and sacral compression maneuver. CONSENT: Verbal and written consent was obtained from the patient. Risks and benefits were reviewed. Risks include but are not limited to abscess and allergic reaction. The patient wishes to proceed. PROCEDURE: The patient was taken back to the special procedures room of [facility]. She was maintained in a prone position. Backside was cleansed with Betadine x3 and a dry sterile dressing was applied. Fluoroscope was used to identify the right sacroiliac joint. The overlying skin was anesthetized with 3 mL of lidocaine 1% with a 25 gauge 1.5-inch needle. A 25 gauge 3.5 inch spinal needle was then directed under fluoroscopic guidance into the joint. There was some discomfort when it entered the joint. Isovue 300 contrast 0.25 of an mL was injected in which demonstrated intraarticular uptake. This was confirmed and then she underwent injection after negative aspiration of 40 mg of Depo-Medrol and 1.5 mL of bupivacaine 0.25%. Injection was well tolerated. DISPOSITION: 1. The patient is taken out into the discharge recovery area where she will be discharged home once discharge criteria have been met. 2. Follow up in the [facility] office in 4 weeks. I attest to the content of the Intraoperative Record and any orders documented therein. Any exceptio ns are noted below.
== END | disposition home or self-care (01) ==
LOC: X.SURG 12:09
PROVIDERS: ATTEND Physical Medicine & Rehabilitation
DX: M46.1 Sacroiliitis, not elsewhere classified (principal); M41.9 Scoliosis, unspecified; M54.5 Low back pain; J45.909 Unspecified asthma, uncomplicated; Z79.02 Long term (current) use of antithrombotics/antiplatelets; Z82.49 Family history of ischemic heart disease and other diseases of the circulatory system; I25.10 Atherosclerotic heart disease of native coronary artery without angina pectoris; E78.5 Hyperlipidemia, unspecified; Z83.3 Family history of diabetes mellitus; Z79.899 Other long term (current) drug therapy; Z82.3 Family history of stroke

== ENCOUNTER → 2017-03-02 | Outpatient (CLI) | payer BC ==
[~2017-03-02] MED LIST changes: -BUPIVACAINE 0.25% 2.5MG/ML PF 10 ML VIAL INFIL ONE; -IOPAMIDOL INJ 61% 15 ML VIAL ONE; -LIDOCAINE HCL 1% MPF 5 ML VIAL ONE; -PANT1TAB48 PO
--- NOTE | 2017-03-02 11:26 | DIAGNOSTIC IMAGING REPORT ---
DOUBLE CONTRAST BARIUM ESOPHAGRAM CLINICAL HISTORY: Gastroesophageal reflux disease. Dysphagia. COMPARISON STUDY: Abdominal CT dated 11/07/2016. TECHNIQUE: A standard air contrast barium esophagram is performed. Multiple spot images of the esophagus are acquired both upright and prone. FINDINGS: The patient swallowed barium and the barium pill without difficulty. The mucosal pattern is normal. There is no evidence of intrinsic or extrinsic mass lesion. No aspiration was seen. The gastroesophageal junction distended normally. There is a small to moderate hiatal hernia. Gastroesophageal reflux was observed during the examination. Fusion hardware is noted in the cervical spine. Fluoroscopy time: 1.1 minutes. Fluoroscopic images: 28 IMPRESSION: Small to moderate hiatal hernia with gastroesophageal reflux observed during the examination. Electronically signed by: Mj Medina M.D. 03/02/2017 11:25 AM Dictated Date/Time: 03/02/2017 11:23 AM
== END | disposition home or self-care (01) ==
LOC: C.RAD 10:37
PROVIDERS: ATTEND Nurse Practitioner Family
DX: K21.9 Gastro-esophageal reflux disease without esophagitis (principal); K44.9 Diaphragmatic hernia without obstruction or gangrene

== ENCOUNTER → 2017-03-02 | Outpatient (CLI) | payer BC, OTHER ==
--- NOTE | 2017-03-02 15:41 | DIAGNOSTIC IMAGING REPORT ---
LUMBAR SPINE 2 OR 3 VIEWS CLINICAL HISTORY: 57 years-old Female presenting with SCOLIOSIS. TECHNIQUE: Frontal and lateral views lumbar spine were obtained. COMPARISON: Correlation made to CT from 11/07/2016. FINDINGS: Dense oral contrast throughout the bowel degrades evaluation of the spine. S-shaped scoliotic curvature of the thoracolumbar spine centered at L1. Vertebral body heights and intervertebral disc spaces grossly maintained. No significant change in alignment since prior CT November 25, 2016. IMPRESSION: Scoliosis unchanged since prior CT and November 25, 2016. Electronically signed by: Oziel Zuniga M.D. 03/02/2017 3:40 PM Dictated Date/Time: 03/02/2017 3:37 PM
--- NOTE | 2017-03-02 15:43 | DIAGNOSTIC IMAGING REPORT ---
THORACIC SPINE 2 VIEWS CLINICAL HISTORY: Lower back pain. Scoliosis. COMPARISON STUDY: Chest radiograph October 31, 2016. FINDINGS: Note is made of an anterior cervical spine fusion. Left lower lung airspace opacity is noted. There is mild S-shaped curvature of the thoracolumbar spine. No acute thoracic spine fracture is identified. There is minimal disc space narrowing with moderate anterior osteophytosis of the thoracic spine. Contrast within the stomach is from recent barium swallow. IMPRESSION: 1. Mild S-shaped scoliosis of the thoracolumbar spine. 2. The thoracic spine fracture. 3. Mild disc space narrowing and moderate anterior osteophytosis of the thoracic spine. 4. Apparent left lower lung opacity. This could reflect epicardial fat pad or pneumonia. Follow-up PA and lateral chest radiographs in one month are recommended. Electronically signed by: Chris Elliott M.D. 03/02/2017 3:41 PM Dictated Date/Time: 03/02/2017 3:37 PM
== END | disposition home or self-care (01) ==
LOC: C.RDSM 14:15
PROVIDERS: ATTEND Orthopaedic Surgery
DX: M41.125 Adolescent idiopathic scoliosis, thoracolumbar region (principal); M25.78 Osteophyte, vertebrae; R91.8 Other nonspecific abnormal finding of lung field

== ENCOUNTER → 2017-03-27 | Day surgery (SDC) | payer BC, OTHER ==
[2017-02-22 10:46] VITALS: BMI 37.0
[~2017-03-27] VITALS: Ht 167.6 cm; Wt 104.5 kg
[~2017-03-27] MED LIST changes: +LIDOCAINE HCL 2% 2 ML VIAL (20MG/ML) ONE; +PROPOFOL IV EMULSION 10 MG/ML 20 ML VIAL IV ONE; +SODIUM CHLORIDE 0.9% 500ML 500 ML IV ONE
[2017-03-27 08:09] VITALS: Ht 167.6 cm; Wt 104.5 kg
--- NOTE | 2017-03-27 08:49 | Endo History and Physical ---
History & Physical Date of Service: Mar 27, 2017. Chief Complaint: HIATAL HERNIA, GERD Referring Physician: DR. ULICES OLMSTEAD History of Present Illness [place] with incomplete relief from PPI's. For Cooper pH study off medications. Past Medical History Neurological Disorder, Arthritis, Asthma, Reflux, High Cholesterol, Hypertension , CVA/TIA, NM Past Surgical History Hx Cardiac Surgery: No Hx Internal Defibrillator: No Hx Pacemaker: No Hx Abdominal Surgery: Yes (JAMES, TUBAL LIGATION, UTERINE ABLATION, BRADLEY BSO) Hx of Implantable Prosthesis: No Hx Post-Op Nausea and Vomiting: No Hx Cancer Surgery: No Hx Thoracic Surgery: No Hx Orthopedic: Yes (C2-3 OR 3-4 WITH PLATE (FULL ROM)) Hx Urinary Tract Surgery: No Family History Colon CA Social History Smoking Status: Former Smoker Hx Substance Use: No Hx Alcohol Use: No Allergies Coded Allergies: Cephalexin (Verified Allergy, Intermediate, YEAST INFECTION, 02/22/17) Latex1 -Allergic Contact Dermititis (Verified Allergy, Intermediate, RASH- ITCHINESS, 02/22/17) Allergy with high doses Lisinopril (Verified Allergy, Intermediate, COUGH, 02/22/17) Amitriptyline (Verified Adverse Reaction, Mild, "Made me tired", 02/22/17) Prednisone (Verified Adverse Reaction, Unknown, ELEVATED BP-"FELT FUNNY", 02/22/17) Current Medications Reported Home Medications Medications Dose Route/Sig Max Daily Dose Days Date Category Dose Instructions Carafate (Sucralfate) 1 Gm Tab 1 Gm PO QID 02/22/17 Reported Dexilant (Dexlansoprazole) 60 Mg Cap 1 Cap PO QAM 02/22/17 Reported Cymbalta (Duloxetine HCl) 30 Mg Cap 30 Mg PO QAM 30 10/31/16 Reported TOTAL DOSE 90 MG. Triamcinolone Acetonide (Triamcinolone Acet) 45 Appln/15 Gm Cr 1 Appln TOP BID PRN 30 10/31/16 Reported Flonase Allergy Relief (Fluticasone Propionate (Nasal)) 50 Mcg/Act Spr 1 [place]anc[place] CRISTIANO BID 10/31/16 Reported Claritin (Loratadine) 10 Mg Tab 10 Mg PO QAM 10/31/16 Reported Lopressor (Metoprolol Tartrate) 50 Mg Tab 50 Mg PO BID 10/31/16 Reported Reglan (Metoclopramide HCl) 10 Mg Tab 10 Mg PO BIDM 10/31/16 Reported NAUSEA One Daily 50 Plus (Multiple Vitamins W/ Minerals) 1 Tab Tab 1 Tab PO QAM 10/31/16 Reported Proventil Hfa (Albuterol Sulfate) 108 Mcg/Act Aer 2 Puffs INH Q4H PRN 10/31/16 Reported D 5000 (Cholecalciferol) 5,000 Unit Cap 5,000 Units PO QAM 10/31/16 Reported Advair Diskus 250/50 60 Dose (Fluticasone Prop/Salmeterol) 1 Ea Aerp 1 Puff INH BID 10/31/16 Reported Bath Nasal R[place] (Saline) 0.65 % Spr 1 [place] CRISTIANO Q2H PRN 10/31/16 Reported Albuterol Sulfate (Albuterol Sulf) 2.5 Mg/3 Ml Nebu 1 Dose INH Q4H PRN 10/31/16 Reported Cozaar (Losartan Potassium) 25 Mg Tab 25 Mg PO QPM 10/30/16 Reported Neurontin (Gabapentin) 300 Mg Cap 300 Mg PO TID 06/08/16 Reported Duloxetine HCl 60 Mg Cap 60 Mg PO QAM 01/22/15 Reported TOTAL DOSE 90 MG. Co Q 10 (Coenzyme Q10 (Ubidecarenone)) 100 Mg Cap 100 Mg PO QAM 02/27/14 Reported Super B Complex Maxi (B-Complex W/ Folic Acid) 1 Tab Tab 1 Tab PO QAM 02/27/14 Reported Lutein 10 Mg Tab 10 Mg PO QPM 02/23/14 Reported Plavix (Clopidogrel Bisulfate) 75 Mg Tab 75 Mg PO QAM 02/23/14 Reported Lioresal (Baclofen) 10 Mg Tab 10 Mg PO TID PRN 05/24/12 Reported Crestor (Rosuvastatin Calcium) 40 Mg Tab 40 Mg PO QPM 05/24/12 Reported Trazodone (Trazodone HCl) 100 Mg Tab 100 Mg PO HS PRN 05/24/12 Reported Vital Signs Weight (Kilograms): 104.55 Height (Feet): 5 Height (Inches): 6 Date Time Temp Pulse Resp B/P (MAP) Pulse Ox O2 Delivery O2 Flow Rate FiO2 03/27/17 08:21 36.6 78 18 127/73 (91) 93 Room Air Physical Exam General Appearance: WD/WN, no apparent distress Respiratory/Chest: Auscultation: breath sounds normal, no wheezing Cardiovascular: Heart Auscultation: RRR, no murmurs Abdomen: Inspection & Palpation: soft, non-distended Assessment and Plan EGD with COOPER
--- NOTE | 2017-03-27 09:44 | GI REPORT ---
Procedure Date: 03/27/2017 8:41 AM Procedure: Upper GI endoscopy Indications: Heartburn, placement of COOPER pH capsule off acid suppression Medicines: Propofol per Anesthesia Complications: No immediate complications. Estimated blood loss: None. Estimated Blood Loss: Estimated blood loss: none. Procedure: Pre-Anesthesia Assessment: - Prior to the procedure, a History and Physical was performed, and patient medications, allergies and sensitivities were reviewed. The patient's tolerance of previous anesthesia was reviewed. - ASA Grade Assessment: III - A patient with severe systemic disease. After obtaining informed consent, the endoscope was passed under direct vision. Throughout the procedure, the patient's blood pressure, pulse, and oxygen saturations were monitored continuously. The Scope was introduced through the mouth, and advanced to the third part of duodenum. The upper GI endoscopy was accomplished with ease. The patient tolerated the procedure well. Findings: The upper third of the esophagus, middle third of the esophagus and lower third of the esophagus were normal. The COOPER capsule with delivery system was introduced through the mouth and advanced into the esophagus, such that the COOPER pH capsule was positioned 29 cm from the incisors, which was 6 cm proximal to the EG junction. Suction was applied to the well of the COOPER pH capsule to suck in the adjacent mucosa of the esophagus using the external vacuum pump set at a minimum vacuum pressure of 600 mmHg for 60 seconds. The COOPER pH capsule was then deployed by depressing the plunger on top of the handle to advance the locking pin into the mucosa, thereby attaching the capsule to the esophagus. The plunger was then rotated a quarter turn clockwise to release the capsule from the delivery system. The delivery system was then withdrawn. Endoscopy was utilized for probe placement and diagnostic evaluation. LA Grade A (one or more mucosal breaks less than 5 mm, not extending between tops of 2 mucosal folds) esophagitis with no bleeding was found 35 cm from the incisors. A non-obstructing Schatzki ring (acquired) was found at the gastroesophageal junction. A medium-sized hiatus hernia was present. The stomach was normal. The examined duodenum was normal. Impression: - Normal upper third of esophagus, middle third of esophagus and lower third of esophagus. - LA Grade A reflux esophagitis. - Non-obstructing Schatzki ring. - Medium-sized hiatus hernia. - Normal stomach. - Normal examined duodenum. - The COOPER pH capsule was positioned 29 cm from the naris, which was 6 cm proximal to the EG junction. - No specimens collected. Recommendation: - Complete COOPER pH study off acid suppression. Dylan De Guzman M.D. Dylan De Guzman MD 03/27/2017 9:44:09 AM This report has been signed electronically. Note Initiated On: 03/27/2017 8:41 AM I attest to the content of the Intraoperative Record and orders documented therein, exceptions below
--- NOTE | 2017-03-27 09:45 | Discharge Instructions ---
Endoscopy Patient Instructions Date / Procedure(s) Performed Mar 27, 2017. EGD Allergy Information Coded Allergies: Cephalexin (Verified Allergy, Intermediate, YEAST INFECTION, 02/22/17) Latex1 -Allergic Contact Dermititis (Verified Allergy, Intermediate, RASH- ITCHINESS, 02/22/17) Allergy with high doses Lisinopril (Verified Allergy, Intermediate, COUGH, 02/22/17) Amitriptyline (Verified Adverse Reaction, Mild, "Made me tired", 02/22/17) Prednisone (Verified Adverse Reaction, Unknown, ELEVATED BP-"FELT FUNNY", 02/22/17) Discharge Date / Findings Mar 27, 2017. Hiatal hernia esophagitis; COOPER placement Medication Instructions Stopped Medication(s): PLAVIX Restart Stopped Medication(s): Continue to hold Dexilant and all antacid medications while Cooper test in progress Provider Instructions Activity Restrictions - No exercising or heavy lifting for 24 hours. - Do not drink alcohol the day of the procedure. - Do not drive a car or operate machinery until the day after the procedure. - Do not make any important decisions or sign important papers in 24 hours after the procedure. Following Day: - Return to full activity which may include returning to work/school. Diet Start your diet with liquids and light foods (jello, soup, juice, toast). Then eat your usual diet if not nauseated. Treatment For Common After Affects For mild abdominal pain, bloating, or excessive gas: - Rest - Eat lightly - Lie on right side Follow-Up Information Follow-up with DR. ULICES OLMSTEAD as scheduled Anesthesia Information What You Should Know You have had a procedure that required some medicine to reduce anxiety and discomfort. This treatment is called moderate sedation. After receiving the treatment, you may be sleepy, but you will be able to breathe on your own. The effects of the treatment may last for several hours. Follow these instructions along with Activity/Diet recommendations noted above: * Do NOT do anything where dizziness or clumsiness would be dangerous. * Rest quietly at home today, then you can be up and about tomorrow. * Have a responsible person stay with you the rest of today. * You may have had an I.V. today. If so, you may take the dressing off later today. Recommendations Call your doctor if: * Trouble breathing * Continuous vomiting for more than 24 hours * Temperature above 101 degrees * Severe abdominal pain or bloating * Pain not relieved by pain medicine ordered * There is increased drainage or redness from any incision * A large amount of rectal bleeding greater than 2-3 tablespoons. (If you had a polyp/s removed or have hemorrhoids, a small amount of blood - from the rectum is to be expected.) * You have any unanswered questions or concerns. IN THE EVENT OF A SERIOUS EMERGENCY, GO TO THE NEAREST EMERGENCY ROOM Your discharge instructions were prepared by provider Dylan De Guzman. Patient Instructions Signature Page Kamala Alcocer Patient (or Guardian) Signature/Date: I have read and understand the instructions given to me by my caregivers. Caregiver/RN/Doctor Signature/Date: The above-named patient and/or guardian has received patient instructions on this date. + Original Patient Signature Page (only) stays with chart. Please make copy for patient.
--- NOTE | 2017-03-27 10:07 | Anesthesiology Progress Note ---
Anesthesia Post Op Note Date & Time Mar 27, 2017 at 10:07 Vital Signs Pain Intensity: 0 Vital Signs Past 12 Hours Date Time Temp Pulse Resp B/P (MAP) Pulse Ox O2 Delivery O2 Flow Rate FiO2 03/27/17 09:42 77 20 145/84 (104) 94 Room Air 03/27/17 08:21 36.6 78 18 127/73 (91) 93 Room Air Notes Mental Status: alert / awake / arousable, participated in evaluation Pt Amnestic to Procedure: Yes Nausea / Vomiting: adequately controlled Pain: adequately controlled Airway Patency, RR, SpO2: stable & adequate BP & HR: stable & adequate Hydration State: stable & adequate Anesthetic Complications: no major complications apparent
[2017-03-27 10:19] VITALS: BP 131/97; PULSE 88; O2SAT 96
--- NOTE | 2017-03-30 16:36 | Procedure Note ---
Procedure Note Date of Service Mar 30, 2017. Procedure Note COOPER 48 hr pH study; Examination with patient off acid suppression. There was significant esophageal acid exposure over the course of the study with the patient in upright and supine positions. Overall DeMeester score 43.8 (nl < 14.72) Dylan De Guzman MD
== END | disposition home or self-care (01) ==
LOC: C.GI 07:49
PROVIDERS: ATTEND Internal Medicine Gastroenterology
DX: K21.9 Gastro-esophageal reflux disease without esophagitis (principal); K44.9 Diaphragmatic hernia without obstruction or gangrene; K20.9 Esophagitis, unspecified; M19.90 Unspecified osteoarthritis, unspecified site; Z90.49 Acquired absence of other specified parts of digestive tract; Z90.710 Acquired absence of both cervix and uterus; Z90.722 Acquired absence of ovaries, bilateral; Z90.79 Acquired absence of other genital organ(s); Z87.891 Personal history of nicotine dependence; Z80.0 Family history of malignant neoplasm of digestive organs